=== PATIENT | male | born 1955 | race African-American/Black ===

== ENCOUNTER 2019-11-01 14:24 | Inpatient (IN) ==
[2019-11-01] MEDS ORDERED: GLUCAGON 1 MG VIAL IM PRN (16:24)
[2019-11-01] MEDS ORDERED: DEXTROSE 10% 250 ML BAG IV PRN (16:24)
[2019-11-01] MEDS ORDERED: DEXTROSE 50% 25 GM/50 ML VIAL IV PRN (16:52)
[2019-11-01] MEDS ORDERED: SODIUM CHLORIDE 0.9% 1,000 ML IV ONE (16:57)
[2019-11-01 17:13] LABS: Basophils % 0.2 % (0.0-0.8); Eosinophils % 0.1 % (0.00-10.9); Hematocrit 33.4 VOL% (42.0-52.0); Hemoglobin 10.5 GM/DL (14.0-18.0); Immature Granulocytes % 3.1 %; Immature Granulocytes Absolute 0.61 #; Lymphocytes # 1.4 10*3/uL (1.4-4.0); Lymphocytes % 6.8 % (21.2-54.2); Mean Corpuscular HGB Conc 31.4 GM/DL (32-36); Mean Corpuscular Volume 89.8 FL (87-102); Mean Platelet Volume 10.5 FL (9.6-12.0); Monocytes % 9.8 % (1.7-12.7); Platelet Count 210 T/CUMM (130-400); Red Blood Count 3.72 MC/CUMM (3.8-5.5); Red Cell Distribution Width 13.6 % (9.3-17.3)
[2019-11-01 17:33] LABS: Albumin 2.1 G/DL (3.4-5.0); Bilirubin,Total 1.2 MG/DL (0.2-1.0); Calcium 8.2 MG/DL (8.5-10.1); Osmolality,Calculated 286.8 MOS/KG (273-304)
[2019-11-01 17:34] LABS: Lymphocytes 15 % (20-55); Segmented Neutrophils 76 % (50-85); Total Cells Counted 100
[2019-11-01 17:35] LABS: Hypochromasia Slight; Platelet Estimate Normal
[2019-11-01] MEDS: SODIUM CHLORIDE 0.9% 1,000 ML IV SCH (19:13)
[2019-11-01] MEDS: PIPERACILLIN/TAZOBACTAM 3,375 MG in SODIUM CHLORIDE 0.9% 100 ML IV SCH (19:16)
[2019-11-01 20:23] LABS: Apearance,Urine CLOUDY (Clear); Bilirubin,Urine Negative (Negative); Blood, Urine Large mg/dL (Negative); Glucose,Urine (UA) 50 mg/dL (Negative); Ketones,Urine Negative (Negative); Mucus,Urine Occasional /LPF (Occasional); Nitrite,Urine Negative (Negative); Protein,Urine 100 MG/DL; RBC,Urine 112 /HPF (0-4); Squamous Epithelial Cell,Urine Few /HPF (0-10); Urine Color Amber (Yellow); Urine Specific Gravity 1.015 (1.001-1.035); WBC,Urine 26 /HPF (0-6)
[2019-11-01] MEDS: INSULIN REGULAR 100 UNIT/ML SUBCUT SCH (21:43)
[2019-11-02] MEDS: PIPERACILLIN/TAZOBACTAM 3,375 MG in SODIUM CHLORIDE 0.9% 100 ML IV SCH ×2 (05:05→17:24)
[2019-11-02 08:52] LABS: Basophils # 0.1 10*3/uL (0.0-0.2); Basophils % 0.2 % (0.0-0.8); Eosinophils # 0.1 10*3/uL (0.0-0.87); Eosinophils % 0.2 % (0.00-10.9); Hematocrit 31.7 VOL% (42.0-52.0); Hemoglobin 10.2 GM/DL (14.0-18.0); Immature Granulocytes % 3.4 %; Lymphocytes # 1.4 10*3/uL (1.4-4.0); Mean Corpuscular HGB Conc 32.2 GM/DL (32-36); Mean Corpuscular Volume 88.8 FL (87-102); Mean Platelet Volume 10.3 FL (9.6-12.0); Monocytes % 8.8 % (1.7-12.7); Neutrophils % 81.4 % (38.7-73.9); Platelet Count 217 T/CUMM (130-400); Red Blood Count 3.57 MC/CUMM (3.8-5.5); Red Cell Distribution Width 13.6 % (9.3-17.3); White Blood Count 23.7 T/CUMM (4-12)
[2019-11-02] MEDS ORDERED: sitaGLIPtin 100 MG TABLET PO SCH (09:00)
[2019-11-02] MEDS ORDERED: VANCOMYCIN INJ 500 MG in SODIUM CHLORIDE 0.9% 250 ML IV PRN (09:00)
[2019-11-02 09:06] LABS: Osmolality,Calculated 278.8 MOS/KG (273-304)
[2019-11-02 10:04] LABS: Band Neutrophils 5 % (0-10); Hypochromasia 1+; Lymphocytes 8 % (20-55); Metamyelocytes 2 %; Microcytosis Slight; Segmented Neutrophils 76 % (50-85); Total Cells Counted 100
[2019-11-02 10:05] LABS: Ovalocytes Few; Platelet Estimate Normal; Polychromasia Slight; Spherocytes Slight
[2019-11-02 10:13] LABS: Atypical Lymphocytes Few; Reactive Lymphocytes Few
[2019-11-02] MEDS: INSULIN REGULAR 100 UNIT/ML SUBCUT SCH ×4 (10:36→21:02)
[2019-11-02] MEDS ORDERED: VANCOMYCIN INJ 1,000 MG in SODIUM CHLORIDE 0.9% 250 ML IV ONE ×2 (13:00)
[2019-11-02] MEDS: SODIUM CHLORIDE 0.9% 1,000 ML IV SCH ×2 (17:46→23:40)
[2019-11-02] MEDS ORDERED: ACETAMINOPHEN 500 MG TABLET PO PRN (18:57)
[2019-11-03] MEDS: PIPERACILLIN/TAZOBACTAM 3,375 MG in SODIUM CHLORIDE 0.9% 100 ML IV SCH ×2 (06:19→18:21)
[2019-11-03 06:22] LABS: Basophils # 0.1 10*3/uL (0.0-0.2); Basophils % 0.2 % (0.0-0.8); Eosinophils # 0.1 10*3/uL (0.0-0.87); Eosinophils % 0.2 % (0.00-10.9); Hematocrit 30.2 VOL% (42.0-52.0); Hemoglobin 9.7 GM/DL (14.0-18.0); Immature Granulocytes % 4.5 %; Immature Granulocytes Absolute 1.09 #; Lymphocytes # 1.6 10*3/uL (1.4-4.0); Lymphocytes % 6.5 % (21.2-54.2); Mean Corpuscular HGB Conc 32.1 GM/DL (32-36); Mean Corpuscular Volume 88.8 FL (87-102); Mean Platelet Volume 10.3 FL (9.6-12.0); Neutrophils % 78.6 % (38.7-73.9); Platelet Count 240 T/CUMM (130-400); Red Cell Distribution Width 13.9 % (9.3-17.3); White Blood Count 24.3 T/CUMM (4-12)
[2019-11-03 06:33] LABS: Calcium 7.9 MG/DL (8.5-10.1); Osmolality,Calculated 290.1 MOS/KG (273-304)
[2019-11-03] MEDS: INSULIN REGULAR 100 UNIT/ML SUBCUT SCH ×4 (08:25→21:15)
[2019-11-03] MEDS ORDERED: LIDOCAINE 2% TOP JELLY 20 ML VIAL INTRAURETH ONE (08:41)
[2019-11-03] MEDS ORDERED: BUPIVACAINE MPF 0.25% 30 ML VIAL ONE (08:51)
[2019-11-03] MEDS ORDERED: LIDOCAINE 1% 20 ML VIAL ONE (08:52)
[2019-11-03] MEDS ORDERED: DEXMEDETOMIDINE 200 MCG/2 ML VIAL ONE (09:17)
[2019-11-03] MEDS: SODIUM CHLORIDE 0.9% 1,000 ML IV SCH (09:22)
[2019-11-03] MEDS: sitaGLIPtin 25 MG TABLET PO SCH (09:22)
[2019-11-03 10:00] LABS: Band Neutrophils 3 % (0-10); Eosinophils 1 % (0-10); Lymphocytes 6 % (20-55); Metamyelocytes 1 %; Segmented Neutrophils 83 % (50-85); Total Cells Counted 100
[2019-11-03 10:11] LABS: Hypochromasia 2+
[2019-11-03 10:12] LABS: Anisocytosis 1+; Macrocytosis Slight; Microcytosis Slight; Platelet Estimate Normal; Polychromasia Slight
[2019-11-03] MEDS ORDERED: MIDAZOLAM 2 MG/2 ML VIAL ONE (10:37)
[2019-11-03] MEDS ORDERED: DESFLURANE 1 UNIT/15 MINUTE INH ONE (10:37)
[2019-11-03] MEDS ORDERED: LIDOCAINE 2% 5 ML VIAL ONE (10:37)
[2019-11-03] MEDS ORDERED: fentaNYL 100 MCG/2 ML VIAL ONE (10:37)
[2019-11-03] MEDS ORDERED: ONDANSETRON 4 MG/2 ML VIAL ONE (10:38)
[2019-11-03] MEDS ORDERED: PHENYLEPHRINE 1 MG/10 ML SYRINGE IV ONE (10:38)
[2019-11-03] MEDS ORDERED: ETOMIDATE 40 MG/20 ML VIAL IV ONE (10:38)
[2019-11-03] MEDS ORDERED: SUCCINYLCHOLINE 200 MG/10 ML VIAL ONE (10:39)
[2019-11-03 10:52] LABS: Apearance,Urine Slightly Hazy (Clear); Bilirubin,Urine Negative (Negative); Blood, Urine Small mg/dL (Negative); Glucose,Urine (UA) 50 mg/dL (Negative); Ketones,Urine Negative (Negative); Nitrite,Urine Negative (Negative); Protein,Urine 30 MG/DL; RBC,Urine 20 /HPF (0-4); Urine Color Amber (Yellow); Urine Specific Gravity 1.015 (1.001-1.035); WBC,Urine 1 /HPF (0-6)
[2019-11-03] MEDS ORDERED: VANCOMYCIN INJ 1,750 MG in SODIUM CHLORIDE 0.9% 500 ML IV PRN (12:24)
[2019-11-03] MEDS ORDERED: VANCOMYCIN INJ 1,750 MG in SODIUM CHLORIDE 0.9% 500 ML IV ONE (14:00)
[2019-11-03] MEDS: oxyCODONE/ACETAMINOPHEN 5-325 MG TABLET PO PRN (18:21)
[2019-11-04] MEDS: SODIUM CHLORIDE 0.9% 1,000 ML IV SCH ×2 (03:06→18:09)
[2019-11-04] MEDS: PIPERACILLIN/TAZOBACTAM 3,375 MG in SODIUM CHLORIDE 0.9% 100 ML IV SCH ×2 (05:38→18:10)
[2019-11-04 06:12] LABS: Basophils # 0.1 10*3/uL (0.0-0.2); Basophils % 0.2 % (0.0-0.8); Eosinophils # 0.1 10*3/uL (0.0-0.87); Eosinophils % 0.6 % (0.00-10.9); Hematocrit 28.4 VOL% (42.0-52.0); Hemoglobin 9.2 GM/DL (14.0-18.0); Immature Granulocytes % 4.1 %; Immature Granulocytes Absolute 0.95 #; Lymphocytes # 1.5 10*3/uL (1.4-4.0); Lymphocytes % 6.5 % (21.2-54.2); Mean Corpuscular HGB Conc 32.4 GM/DL (32-36); Mean Corpuscular Volume 87.1 FL (87-102); Mean Platelet Volume 10.2 FL (9.6-12.0); Monocytes % 9.7 % (1.7-12.7); Neutrophils % 78.9 % (38.7-73.9); Platelet Count 261 T/CUMM (130-400); Red Blood Count 3.26 MC/CUMM (3.8-5.5); Red Cell Distribution Width 14.2 % (9.3-17.3)
[2019-11-04 06:22] LABS: Calcium 7.8 MG/DL (8.5-10.1); Osmolality,Calculated 286.4 MOS/KG (273-304)
[2019-11-04 06:48] LABS: Band Neutrophils 3 % (0-10); Lymphocytes 9 % (20-55); Platelet Estimate Normal; Segmented Neutrophils 76 % (50-85); Total Cells Counted 100
[2019-11-04 06:49] LABS: Anisocytosis 1+; Macrocytosis Slight; Polychromasia Slight
[2019-11-04] MEDS: INSULIN REGULAR 100 UNIT/ML SUBCUT SCH ×4 (08:47→21:53)
[2019-11-04] MEDS: oxyCODONE/ACETAMINOPHEN 5-325 MG TABLET PO PRN ×2 (08:47→14:42)
[2019-11-04] MEDS: sitaGLIPtin 25 MG TABLET PO SCH (08:48)
[2019-11-05] MEDS: SODIUM CHLORIDE 0.9% 1,000 ML IV SCH ×2 (01:25→17:17)
[2019-11-05] MEDS: oxyCODONE/ACETAMINOPHEN 5-325 MG TABLET PO PRN ×2 (04:00→18:32)
[2019-11-05] MEDS: PIPERACILLIN/TAZOBACTAM 3,375 MG in SODIUM CHLORIDE 0.9% 100 ML IV SCH ×2 (05:55→17:18)
[2019-11-05] MEDS: sitaGLIPtin 25 MG TABLET PO SCH (10:14)
[2019-11-05] MEDS: INSULIN REGULAR 100 UNIT/ML SUBCUT SCH ×4 (10:14→21:07)
[2019-11-05] MEDS ORDERED: VANCOMYCIN INJ 1,750 MG in SODIUM CHLORIDE 0.9% 500 ML IV ONE (11:00)
[2019-11-06] MEDS: SODIUM CHLORIDE 0.9% 1,000 ML IV SCH (03:33)
[2019-11-06] MEDS: PIPERACILLIN/TAZOBACTAM 3,375 MG in SODIUM CHLORIDE 0.9% 100 ML IV SCH ×2 (05:57→17:37)
[2019-11-06 08:04] LABS: Basophils % 0.2 % (0.0-0.8); Eosinophils # 0.2 10*3/uL (0.0-0.87); Eosinophils % 0.9 % (0.00-10.9); Hematocrit 28.8 VOL% (42.0-52.0); Hemoglobin 9.4 GM/DL (14.0-18.0); Immature Granulocytes % 1.8 %; Immature Granulocytes Absolute 0.35 #; Lymphocytes # 1.3 10*3/uL (1.4-4.0); Lymphocytes % 6.6 % (21.2-54.2); Mean Corpuscular HGB Conc 32.6 GM/DL (32-36); Mean Corpuscular Volume 87.8 FL (87-102); Mean Platelet Volume 10.1 FL (9.6-12.0); Monocytes % 9.8 % (1.7-12.7); Neutrophils % 80.7 % (38.7-73.9); Platelet Count 287 T/CUMM (130-400); Red Blood Count 3.28 MC/CUMM (3.8-5.5); Red Cell Distribution Width 14.4 % (9.3-17.3); White Blood Count 19.3 T/CUMM (4-12)
[2019-11-06 08:20] LABS: Calcium 7.8 MG/DL (8.5-10.1); Osmolality,Calculated 279.7 MOS/KG (273-304)
[2019-11-06] MEDS: sitaGLIPtin 25 MG TABLET PO SCH (09:57)
[2019-11-06] MEDS: INSULIN REGULAR 100 UNIT/ML SUBCUT SCH ×4 (09:57→20:36)
[2019-11-06] MEDS: oxyCODONE/ACETAMINOPHEN 5-325 MG TABLET PO PRN (15:27)
[2019-11-07] MEDS: SODIUM CHLORIDE 0.9% 1,000 ML IV SCH (01:26)
[2019-11-07] MEDS: PIPERACILLIN/TAZOBACTAM 3,375 MG in SODIUM CHLORIDE 0.9% 100 ML IV SCH (05:21)
[2019-11-07 07:17] LABS: Basophils % 0.2 % (0.0-0.8); Eosinophils # 0.2 10*3/uL (0.0-0.87); Eosinophils % 1.1 % (0.00-10.9); Hematocrit 27.9 VOL% (42.0-52.0); Immature Granulocytes % 1.3 %; Immature Granulocytes Absolute 0.22 #; Lymphocytes # 1.1 10*3/uL (1.4-4.0); Lymphocytes % 6.3 % (21.2-54.2); Mean Corpuscular HGB Conc 32.3 GM/DL (32-36); Mean Corpuscular Volume 87.5 FL (87-102); Mean Platelet Volume 9.7 FL (9.6-12.0); Monocytes % 10.1 % (1.7-12.7); Platelet Count 310 T/CUMM (130-400); Red Blood Count 3.19 MC/CUMM (3.8-5.5); Red Cell Distribution Width 14.4 % (9.3-17.3); White Blood Count 17.6 T/CUMM (4-12)
[2019-11-07 07:29] LABS: Calcium 7.6 MG/DL (8.5-10.1); Osmolality,Calculated 278.8 MOS/KG (273-304)
[2019-11-07] MEDS: INSULIN REGULAR 100 UNIT/ML SUBCUT SCH ×2 (08:46→12:30)
[2019-11-07] MEDS ORDERED: TAMSULOSIN 0.4 MG CAPSULE PO SCH (09:00)
[2019-11-07] MEDS ORDERED: LINEZOLID INJ 600 MG in PREMIX 1 EACH IV SCH (09:00)
[2019-11-07] MEDS: sitaGLIPtin 25 MG TABLET PO SCH (09:52)
[2019-11-07] MEDS ORDERED: LOSARTAN/HCTZ 50-12.5 MG TABLET PO SCH (10:00)
[2019-11-07] MEDS: oxyCODONE/ACETAMINOPHEN 5-325 MG TABLET PO PRN (11:04)
[2019-11-07 11:59] VITALS: BP 153/79
== END 2019-11-07 14:55 | DRG 264 ==
LOC: N.3E → SUATTDRO 15:18 → OBSVTOIN 15:18
PROVIDERS: ADMIT Surgery; ATTEND Surgery

== ENCOUNTER 2020-05-01 11:37 | Inpatient (IN) ==
[2020-05-01 12:26] LABS: Basophils % 0.2 % (0.0-0.8); Eosinophils % 0.4 % (0.00-10.9); Hematocrit 35.7 VOL% (42.0-52.0); Hemoglobin 11.5 GM/DL (14.0-18.0); Immature Granulocytes % 0.7 %; Immature Granulocytes Absolute 0.03 #; Lymphocytes # 0.8 10*3/uL (1.4-4.0); Lymphocytes % 17.3 % (21.2-54.2); Mean Corpuscular HGB Conc 32.2 GM/DL (32-36); Mean Corpuscular Volume 89.3 FL (87-102); Mean Platelet Volume 9.8 FL (9.6-12.0); Monocytes % 6.2 % (1.7-12.7); Neutrophils % 75.2 % (38.7-73.9); Platelet Count 191 T/CUMM (130-400); Red Cell Distribution Width 14.3 % (9.3-17.3); White Blood Count 4.5 T/CUMM (4-12)
[2020-05-01] MEDS ORDERED: NALOXONE 0.4 MG/ML VIAL IV ONE (12:29)
[2020-05-01 12:37] LABS: Alanine Aminotransferase 58 U/L (16-61); Albumin 2.8 G/DL (3.4-5.0); Alkaline Phosphatase 108 U/L (45-117); Aspartate Amino Transferase 49 U/L (0-37); Bilirubin,Total < 0.39 MG/DL (0.2-1.0); Blood Urea Nitrogen 84 MG/DL (7-18); Calcium 9.4 MG/DL (8.5-10.1); Estimated Glom Filtration Rate 19 ML/MIN; Glucose 128 MG/DL (74-106); Osmolality,Calculated 297.1 MOS/KG (273-304); Total Protein 8.1 G/DL (6.4-8.3)
[2020-05-01 13:00] LABS: Bacteria,Urine Occasional /HPF (Few); Bilirubin,Urine Negative (Negative); Blood, Urine Negative (Negative); Glucose,Urine (UA) Negative (Negative); Ketones,Urine Negative (Negative); Nitrite,Urine Negative (Negative); Protein,Urine Negative; RBC,Urine <1 /HPF (0-4); Squamous Epithelial Cell,Urine Occasional /HPF (0-10); Urine Appearance CLEAR (Clear); Urine Color Straw (Yellow); Urine Specific Gravity 1.006 (1.001-1.035); Urine Urobilinogen < 2.0 EU/DL (0.2-1.0); WBC,Urine 1 /HPF (0-6)
[2020-05-01] MEDS ORDERED: SODIUM CHLORIDE 0.9% 1,000 ML IV STA (13:30)
[2020-05-01] MEDS ORDERED: ONDANSETRON 4 MG/2 ML VIAL IV PRN (14:29)
[2020-05-01] MEDS ORDERED: ALBUTEROL 2.5 MG/3 ML NEB RESP TX PRN (14:29)
[2020-05-01] MEDS ORDERED: hydrALAZINE 20 MG/1 ML VIAL IV PRN (14:48)
[2020-05-01] MEDS ORDERED: GLUCAGON 1 MG VIAL IM PRN (14:55)
[2020-05-01] MEDS ORDERED: LIDOCAINE 2% TOP JELLY 20 ML VIAL INTRAURETH ONE (15:18)
[2020-05-01 15:25] LABS: ABG HCO3 34.8 MMOL/L (20-26); ABG Oxygen Saturation 98.6 % (95-100); ABG PCO2 52.9 MM HG (35-48); ABG PH 7.451 (7.35-7.45); ABG TCO2 33.4 MMOL/L (23-27); Pt O2 Delivery Device Room Air
[2020-05-01] MEDS: cefTRIAXone 1,000 MG in SYRINGE 1 EACH IV SCH (16:30)
[2020-05-01 17:14] LABS: PT Patient Result 11.1 SECS (9.8-11.9)
[2020-05-01] MEDS: SODIUM CHLORIDE 0.9% 1,000 ML IV SCH (17:20)
[2020-05-01] MEDS: HEPARIN 5,000 UNIT/1 ML VIAL SUBCUT SCH ×2 (17:39→23:57)
[2020-05-01] MEDS: INSULIN REGULAR 100 UNIT/ML SUBCUT SCH ×2 (17:42→21:44)
[2020-05-01] MEDS: DEXTROSE 50% 25 GM/50 ML VIAL IV PRN (17:49)
[2020-05-01] MEDS ORDERED: COSYNTROPIN 0.25 MG VIAL IV ONE (19:00)
[2020-05-01] MEDS: SODIUM BICARBONATE 650 MG TABLET PO SCH (22:05)
[2020-05-02 04:48] LABS: Basophils % 0.2 % (0.0-0.8); Eosinophils % 0.2 % (0.00-10.9); Hematocrit 32.7 VOL% (42.0-52.0); Hemoglobin 10.4 GM/DL (14.0-18.0); Immature Granulocytes % 0.3 %; Immature Granulocytes Absolute 0.02 #; Lymphocytes # 0.6 10*3/uL (1.4-4.0); Lymphocytes % 9.7 % (21.2-54.2); Mean Corpuscular HGB Conc 31.8 GM/DL (32-36); Mean Corpuscular Volume 89.8 FL (87-102); Mean Platelet Volume 10.5 FL (9.6-12.0); Monocytes % 8.3 % (1.7-12.7); NRBC # 0.05 10*3/uL; Neutrophils % 81.3 % (38.7-73.9); Platelet Count 192 T/CUMM (130-400); Red Blood Count 3.64 MC/CUMM (3.8-5.5); Red Cell Distribution Width 14.5 % (9.3-17.3); White Blood Count 6.5 T/CUMM (4-12)
[2020-05-02 05:11] LABS: Albumin 2.4 G/DL (3.4-5.0); Bilirubin,Total 1.1 MG/DL (0.2-1.0); Calcium 8.7 MG/DL (8.5-10.1); Osmolality,Calculated 300.5 MOS/KG (273-304); Total Protein 7.1 G/DL (6.4-8.3)
[2020-05-02 05:16] LABS: Free T4 (Free Thyroxine) 0.93 NG/DL (0.76-1.46)
[2020-05-02] MEDS: SODIUM CHLORIDE 0.9% 1,000 ML IV SCH ×3 (05:22→17:44)
[2020-05-02] MEDS: DEXTROSE 50% 25 GM/50 ML VIAL IV PRN (05:28)
[2020-05-02] MEDS: HEPARIN 5,000 UNIT/1 ML VIAL SUBCUT SCH ×3 (06:18→23:11)
[2020-05-02] MEDS: INSULIN REGULAR 100 UNIT/ML SUBCUT SCH ×4 (07:10→21:05)
[2020-05-02] MEDS: TAMSULOSIN 0.4 MG CAPSULE PO SCH (08:30)
[2020-05-02] MEDS: SODIUM BICARBONATE 650 MG TABLET PO SCH ×2 (08:30→21:26)
[2020-05-02] MEDS ORDERED: SODIUM CHLORIDE 0.9% 500 ML IV ONE (09:32)
[2020-05-02] MEDS: LEVOTHYROXINE 75 MCG TABLET PO SCH (12:09)
[2020-05-02 16:51] LABS: Calcium 8.6 MG/DL (8.5-10.1); Osmolality,Calculated 299.5 MOS/KG (273-304)
[2020-05-02] MEDS: cefTRIAXone 1,000 MG in SYRINGE 1 EACH IV SCH (17:40)
[2020-05-03] MEDS: SODIUM CHLORIDE 0.9% 1,000 ML IV SCH ×2 (05:00→23:03)
[2020-05-03 05:33] LABS: Basophils % 0.1 % (0.0-0.8); Eosinophils % 0.3 % (0.00-10.9); Hematocrit 31.3 VOL% (42.0-52.0); Hemoglobin 9.7 GM/DL (14.0-18.0); Immature Granulocytes % 0.3 %; Immature Granulocytes Absolute 0.02 #; Lymphocytes # 0.9 10*3/uL (1.4-4.0); Lymphocytes % 12.7 % (21.2-54.2); Mean Corpuscular Volume 92.9 FL (87-102); Monocytes % 9.6 % (1.7-12.7); Platelet Count 147 T/CUMM (130-400); Red Blood Count 3.37 MC/CUMM (3.8-5.5); Red Cell Distribution Width 14.8 % (9.3-17.3); White Blood Count 7.3 T/CUMM (4-12)
[2020-05-03 05:51] LABS: Calcium 8.6 MG/DL (8.5-10.1); Osmolality,Calculated 300.3 MOS/KG (273-304)
[2020-05-03 05:51] LABS: Hypochromasia 1+; Microcytosis 1+
[2020-05-03 05:52] LABS: Platelet Estimate Adequate
[2020-05-03] MEDS: INSULIN REGULAR 100 UNIT/ML SUBCUT SCH ×4 (08:00→23:02)
[2020-05-03] MEDS: TAMSULOSIN 0.4 MG CAPSULE PO SCH (08:50)
[2020-05-03] MEDS: HEPARIN 5,000 UNIT/1 ML VIAL SUBCUT SCH ×3 (08:50→23:05)
[2020-05-03] MEDS: LEVOTHYROXINE 75 MCG TABLET PO SCH (08:50)
[2020-05-03] MEDS: SODIUM BICARBONATE 650 MG TABLET PO SCH (08:50)
[2020-05-04] MEDS: INSULIN REGULAR 100 UNIT/ML SUBCUT SCH ×4 (02:25→17:51)
[2020-05-04 06:47] LABS: Basophils % 0.2 % (0.0-0.8); Eosinophils % 0.5 % (0.00-10.9); Hematocrit 33.6 VOL% (42.0-52.0); Hemoglobin 10.4 GM/DL (14.0-18.0); Immature Granulocytes % 0.3 %; Immature Granulocytes Absolute 0.02 #; Lymphocytes # 0.7 10*3/uL (1.4-4.0); Lymphocytes % 12.1 % (21.2-54.2); Mean Corpuscular Volume 92.1 FL (87-102); Mean Platelet Volume 10.1 FL (9.6-12.0); Monocytes % 10.9 % (1.7-12.7); Platelet Count 132 T/CUMM (130-400); Red Blood Count 3.65 MC/CUMM (3.8-5.5); Red Cell Distribution Width 14.5 % (9.3-17.3); White Blood Count 5.9 T/CUMM (4-12)
[2020-05-04 07:09] LABS: Calcium 9.3 MG/DL (8.5-10.1); Osmolality,Calculated 301.1 MOS/KG (273-304)
[2020-05-04] MEDS: TAMSULOSIN 0.4 MG CAPSULE PO SCH (08:37)
[2020-05-04] MEDS: HEPARIN 5,000 UNIT/1 ML VIAL SUBCUT SCH ×3 (08:37→23:07)
[2020-05-04] MEDS: LEVOTHYROXINE 75 MCG TABLET PO SCH (08:37)
[2020-05-04] MEDS: SODIUM CHLORIDE 0.9% 1,000 ML IV SCH ×3 (17:51→23:00)
[2020-05-04] MEDS ORDERED: traZODone 50 MG TABLET PO SCH (21:00)
[2020-05-05] MEDS: INSULIN REGULAR 100 UNIT/ML SUBCUT SCH ×4 (00:56→17:49)
[2020-05-05] MEDS: HEPARIN 5,000 UNIT/1 ML VIAL SUBCUT SCH ×3 (06:19→22:50)
[2020-05-05] MEDS: LEVOTHYROXINE 75 MCG TABLET PO SCH (06:19)
[2020-05-05] MEDS: TAMSULOSIN 0.4 MG CAPSULE PO SCH (08:34)
[2020-05-05] MEDS: SODIUM CHLORIDE 0.9% 1,000 ML IV SCH ×2 (09:19→23:16)
[2020-05-05 14:01] LABS: Basophils % 0.1 % (0.0-0.8); Eosinophils % 0.2 % (0.00-10.9); Hemoglobin 9.4 GM/DL (14.0-18.0); Immature Granulocytes % 0.4 %; Immature Granulocytes Absolute 0.03 #; Lymphocytes # 0.8 10*3/uL (1.4-4.0); Lymphocytes % 9.3 % (21.2-54.2); Mean Corpuscular HGB Conc 30.3 GM/DL (32-36); Mean Corpuscular Volume 94.8 FL (87-102); Monocytes % 11.3 % (1.7-12.7); Neutrophils % 78.7 % (38.7-73.9); Platelet Count 101 T/CUMM (130-400); Red Blood Count 3.27 MC/CUMM (3.8-5.5); Red Cell Distribution Width 14.9 % (9.3-17.3); White Blood Count 8.6 T/CUMM (4-12)
[2020-05-05 14:15] LABS: ABG Base Excess 9.1 MMOL/L (-2.5-2.5); ABG HCO3 32.8 MMOL/L (20-26); ABG Oxygen Saturation 98.4 % (95-100); ABG PCO2 54.2 MM HG (35-48)
[2020-05-05 14:27] LABS: Calcium 8.8 MG/DL (8.5-10.1); Osmolality,Calculated 305.8 MOS/KG (273-304)
[2020-05-06] MEDS: INSULIN REGULAR 100 UNIT/ML SUBCUT SCH ×4 (00:39→17:50)
[2020-05-06] MEDS: SODIUM CHLORIDE 0.9% 1,000 ML IV SCH ×4 (01:40→22:18)
[2020-05-06] MEDS: HEPARIN 5,000 UNIT/1 ML VIAL SUBCUT SCH ×2 (06:17→17:49)
[2020-05-06] MEDS: LEVOTHYROXINE 75 MCG TABLET PO SCH (06:18)
[2020-05-06] MEDS ORDERED: ACETAMINOPHEN 500 MG TABLET PO PRN (07:46)
[2020-05-06] MEDS ORDERED: NOREPINEPHRINE 8 MG in SODIUM CHLORIDE 0.9% 242 ML IV PRN (07:53)
[2020-05-06 08:24] LABS: Troponin I 0.052 NG/ML (0.00-0.045)
[2020-05-06] MEDS ORDERED: VANCOMYCIN INJ 1,250 MG in SODIUM CHLORIDE 0.9% 250 ML IV ONE (09:00)
[2020-05-06] MEDS: MEROPENEM 500 MG in SODIUM CHLORIDE 0.9% 100 ML IV SCH ×2 (09:02→22:06)
[2020-05-06] MEDS: TAMSULOSIN 0.4 MG CAPSULE PO SCH (09:02)
[2020-05-06] MEDS: methylPREDNISolone SOD SUC 125 MG/2 ML VIAL IV SCH ×2 (09:02→17:00)
[2020-05-06 09:49] LABS: ABG Base Excess 5.8 MMOL/L (-2.5-2.5); ABG HCO3 29.7 MMOL/L (20-26); ABG Oxygen Saturation 99.1 % (95-100); ABG PH 7.301 (7.35-7.45); ABG TCO2 31.6 MMOL/L (23-27); Pt O2 Delivery Device Simple Mask
[2020-05-06 10:18] LABS: Osmolality,Calculated 312.4 MOS/KG (273-304)
[2020-05-06] MEDS: ALBUTEROL/IPRATROPIUM 3 ML NEB RESP TX SCH ×2 (13:22→19:29)
[2020-05-07] MEDS: methylPREDNISolone SOD SUC 125 MG/2 ML VIAL IV SCH ×4 (00:11→21:54)
[2020-05-07] MEDS: INSULIN REGULAR 100 UNIT/ML SUBCUT SCH ×5 (00:11→23:14)
[2020-05-07] MEDS: HEPARIN 5,000 UNIT/1 ML VIAL SUBCUT SCH ×4 (00:11→23:14)
[2020-05-07] MEDS: ALBUTEROL/IPRATROPIUM 3 ML NEB RESP TX SCH ×4 (01:18→19:16)
[2020-05-07 05:06] LABS: Basophils % 0.2 % (0.0-0.8); Hematocrit 37.1 VOL% (42.0-52.0); Hemoglobin 11.1 GM/DL (14.0-18.0); Immature Granulocytes % 0.4 %; Immature Granulocytes Absolute 0.05 #; Lymphocytes # 0.5 10*3/uL (1.4-4.0); Lymphocytes % 4.4 % (21.2-54.2); Mean Corpuscular HGB Conc 29.9 GM/DL (32-36); Mean Corpuscular Volume 97.4 FL (87-102); Mean Platelet Volume 11.2 FL (9.6-12.0); Monocytes % 2.3 % (1.7-12.7); Neutrophils % 92.7 % (38.7-73.9); Platelet Count 79 T/CUMM (130-400); Red Blood Count 3.81 MC/CUMM (3.8-5.5); White Blood Count 11.9 T/CUMM (4-12)
[2020-05-07 05:06] LABS: Alanine Aminotransferase 64 U/L (16-61); Albumin 1.9 G/DL (3.4-5.0); Alkaline Phosphatase 94 U/L (45-117); Aspartate Amino Transferase 57 U/L (0-37); Bilirubin,Total < 0.39 MG/DL (0.2-1.0); Blood Urea Nitrogen 67 MG/DL (7-18); Calcium 9.1 MG/DL (8.5-10.1); Estimated Glom Filtration Rate 29 ML/MIN; Glucose 237 MG/DL (74-106); Osmolality,Calculated 316.6 MOS/KG (273-304); Total Protein 7.2 G/DL (6.4-8.3)
[2020-05-07 05:22] LABS: Band Neutrophils 1 % (0-10); Lymphocytes 5 % (20-55); Platelet Estimate Decreased; Segmented Neutrophils 92 % (50-85); Total Cells Counted 100
[2020-05-07] MEDS: SODIUM CHLORIDE 0.9% 1,000 ML IV SCH ×3 (06:12→18:49)
[2020-05-07] MEDS: LEVOTHYROXINE 75 MCG TABLET PO SCH (06:20)
[2020-05-07] MEDS ORDERED: VANCOMYCIN INJ 1,250 MG in SODIUM CHLORIDE 0.9% 250 ML IV PRN (08:13)
[2020-05-07] MEDS: TAMSULOSIN 0.4 MG CAPSULE PO SCH (10:19)
[2020-05-07] MEDS: MEROPENEM 500 MG in SODIUM CHLORIDE 0.9% 100 ML IV SCH ×2 (10:20→21:54)
[2020-05-07] MEDS ORDERED: VANCOMYCIN INJ 1,250 MG in SODIUM CHLORIDE 0.9% 250 ML IV ONE (13:00)
[2020-05-07 17:48] LABS: Glucose,CSF 159 MG/DL (40-70)
[2020-05-07 18:57] LABS: Lymphocytes,CSF 35 %; Monocytes,CSF 51 %; Neutrophils,CSF 14 %
[2020-05-07 18:58] LABS: Appearance,CSF Clear; Red Blood Cell,CSF 187 C/CUMM; White Blood Cell,CSF 9 C/CUMM
[2020-05-08] MEDS: ALBUTEROL/IPRATROPIUM 3 ML NEB RESP TX SCH ×4 (01:19→19:27)
[2020-05-08] MEDS: SODIUM CHLORIDE 0.9% 1,000 ML IV SCH (01:48)
[2020-05-08] MEDS: INSULIN REGULAR 100 UNIT/ML SUBCUT SCH ×4 (05:28→23:47)
[2020-05-08 06:11] LABS: Basophils % 0.1 % (0.0-0.8); Hemoglobin 10.2 GM/DL (14.0-18.0); Immature Granulocytes % 0.5 %; Immature Granulocytes Absolute 0.07 #; Lymphocytes # 0.4 10*3/uL (1.4-4.0); Lymphocytes % 3.2 % (21.2-54.2); Mean Corpuscular HGB Conc 30.9 GM/DL (32-36); Mean Corpuscular Volume 92.4 FL (87-102); Mean Platelet Volume 10.9 FL (9.6-12.0); Monocytes % 2.3 % (1.7-12.7); Neutrophils % 93.9 % (38.7-73.9); Platelet Count 120 T/CUMM (130-400); Red Blood Count 3.57 MC/CUMM (3.8-5.5); Red Cell Distribution Width 14.8 % (9.3-17.3); White Blood Count 12.8 T/CUMM (4-12)
[2020-05-08] MEDS: LEVOTHYROXINE 75 MCG TABLET PO SCH (06:19)
[2020-05-08] MEDS: HEPARIN 5,000 UNIT/1 ML VIAL SUBCUT SCH ×3 (06:19→23:47)
[2020-05-08] MEDS ORDERED: hydrALAZINE 20 MG/1 ML VIAL IV ONE (06:32)
[2020-05-08 06:33] LABS: Albumin 1.9 G/DL (3.4-5.0); Bilirubin,Total 0.7 MG/DL (0.2-1.0); Calcium 9.3 MG/DL (8.5-10.1); Total Protein 7.2 G/DL (6.4-8.3)
[2020-05-08 07:42] LABS: Hypochromasia 1+; Lymphocytes 1 % (20-55); Segmented Neutrophils 96 % (50-85); Target Cells Slight; Total Cells Counted 100
[2020-05-08 07:43] LABS: Microcytosis Slight; Platelet Estimate Adequate
[2020-05-08] MEDS: MEROPENEM 500 MG in SODIUM CHLORIDE 0.9% 100 ML IV SCH ×3 (07:56→23:48)
[2020-05-08] MEDS: methylPREDNISolone SOD SUC 125 MG/2 ML VIAL IV SCH ×2 (08:40→21:24)
[2020-05-08] MEDS: TAMSULOSIN 0.4 MG CAPSULE PO SCH (08:40)
[2020-05-08] MEDS: SODIUM CHLORIDE 0.45% 1,000 ML IV SCH ×2 (08:43→21:23)
[2020-05-08] MEDS ORDERED: PHENYTOIN INJ 1,000 MG in SODIUM CHLORIDE 0.9% 100 ML IV ONE (10:02)
[2020-05-08] MEDS: amLODIPine 10 MG TABLET PO SCH (10:12)
[2020-05-08] MEDS: PHENYTOIN 100 MG/2 ML VIAL IV SCH (18:27)
[2020-05-08] MEDS ORDERED: VANCOMYCIN INJ 1,250 MG in SODIUM CHLORIDE 0.9% 250 ML IV ONE (21:00)
[2020-05-09] MEDS: ALBUTEROL/IPRATROPIUM 3 ML NEB RESP TX SCH ×4 (00:06→20:58)
[2020-05-09] MEDS: PHENYTOIN 100 MG/2 ML VIAL IV SCH (02:33)
[2020-05-09 04:52] LABS: Basophils % 0.1 % (0.0-0.8); Hematocrit 34.5 VOL% (42.0-52.0); Hemoglobin 10.7 GM/DL (14.0-18.0); Immature Granulocytes % 0.4 %; Immature Granulocytes Absolute 0.04 #; Lymphocytes # 0.8 10*3/uL (1.4-4.0); Mean Corpuscular Volume 91.8 FL (87-102); Mean Platelet Volume 10.5 FL (9.6-12.0); Monocytes % 6.4 % (1.7-12.7); Neutrophils % 85.1 % (38.7-73.9); Platelet Count 153 T/CUMM (130-400); Red Blood Count 3.76 MC/CUMM (3.8-5.5); Red Cell Distribution Width 14.8 % (9.3-17.3); White Blood Count 9.4 T/CUMM (4-12)
[2020-05-09 05:30] LABS: Calcium 8.9 MG/DL (8.5-10.1); Osmolality,Calculated 318.3 MOS/KG (273-304)
[2020-05-09] MEDS: SODIUM CHLORIDE 0.45% 1,000 ML IV SCH ×3 (05:33→20:48)
[2020-05-09] MEDS: INSULIN REGULAR 100 UNIT/ML SUBCUT SCH ×3 (06:17→18:04)
[2020-05-09] MEDS: LEVOTHYROXINE 75 MCG TABLET PO SCH (06:55)
[2020-05-09] MEDS: HEPARIN 5,000 UNIT/1 ML VIAL SUBCUT SCH ×3 (06:55→23:09)
[2020-05-09] MEDS: MEROPENEM 500 MG in SODIUM CHLORIDE 0.9% 100 ML IV SCH (08:59)
[2020-05-09] MEDS: TAMSULOSIN 0.4 MG CAPSULE PO SCH (09:10)
[2020-05-09] MEDS: amLODIPine 10 MG TABLET PO SCH (09:10)
[2020-05-09] MEDS: methylPREDNISolone SOD SUC 125 MG/2 ML VIAL IV SCH ×2 (09:11→20:58)
[2020-05-09] MEDS: cloNIDine 0.3 MG/24 HR PATCH TRANSDERM SCH (10:02)
[2020-05-10] MEDS: INSULIN REGULAR 100 UNIT/ML SUBCUT SCH ×4 (01:00→17:07)
[2020-05-10] MEDS: ALBUTEROL/IPRATROPIUM 3 ML NEB RESP TX SCH ×4 (01:20→20:10)
[2020-05-10] MEDS: SODIUM CHLORIDE 0.45% 1,000 ML IV SCH ×2 (06:59→18:02)
[2020-05-10] MEDS: HEPARIN 5,000 UNIT/1 ML VIAL SUBCUT SCH ×2 (07:03→17:07)
[2020-05-10 08:23] LABS: Calcium 8.7 MG/DL (8.5-10.1); Osmolality,Calculated 318.3 MOS/KG (273-304)
[2020-05-10] MEDS: methylPREDNISolone SOD SUC 125 MG/2 ML VIAL IV SCH ×2 (10:33→20:32)
[2020-05-10] MEDS: TAMSULOSIN 0.4 MG CAPSULE PO SCH (10:43)
[2020-05-10] MEDS: LEVOTHYROXINE 75 MCG TABLET PO SCH (10:43)
[2020-05-10] MEDS: amLODIPine 10 MG TABLET PO SCH (10:44)
[2020-05-10 13:10] LABS: VDRL Spinal Fluid Negative (Negative)
[2020-05-11] MEDS: HEPARIN 5,000 UNIT/1 ML VIAL SUBCUT SCH ×2 (00:33→10:42)
[2020-05-11] MEDS: INSULIN REGULAR 100 UNIT/ML SUBCUT SCH ×4 (00:33→18:03)
[2020-05-11] MEDS: ALBUTEROL/IPRATROPIUM 3 ML NEB RESP TX SCH ×4 (01:30→19:33)
[2020-05-11 05:54] LABS: Basophils % 0.1 % (0.0-0.8); Eosinophils % 0.4 % (0.00-10.9); Hematocrit 29.8 VOL% (42.0-52.0); Hemoglobin 9.4 GM/DL (14.0-18.0); Immature Granulocytes % 0.5 %; Immature Granulocytes Absolute 0.05 #; Lymphocytes # 1.4 10*3/uL (1.4-4.0); Lymphocytes % 14.8 % (21.2-54.2); Mean Corpuscular HGB Conc 31.5 GM/DL (32-36); Mean Corpuscular Volume 90.6 FL (87-102); Mean Platelet Volume 10.5 FL (9.6-12.0); Monocytes % 9.1 % (1.7-12.7); Neutrophils % 75.1 % (38.7-73.9); Platelet Count 181 T/CUMM (130-400); Red Blood Count 3.29 MC/CUMM (3.8-5.5); Red Cell Distribution Width 14.5 % (9.3-17.3); White Blood Count 9.6 T/CUMM (4-12)
[2020-05-11 06:21] LABS: Calcium 8.2 MG/DL (8.5-10.1)
[2020-05-11 06:28] LABS: Eosinophils 1 % (0-10); Hypochromasia Slight; Lymphocytes 13 % (20-55); Platelet Estimate Normal; Segmented Neutrophils 79 % (50-85); Total Cells Counted 100
[2020-05-11] MEDS: SODIUM CHLORIDE 0.45% 1,000 ML IV SCH ×2 (06:59→14:40)
[2020-05-11] MEDS: TAMSULOSIN 0.4 MG CAPSULE PO SCH (10:41)
[2020-05-11] MEDS: LEVOTHYROXINE 75 MCG TABLET PO SCH (10:42)
[2020-05-11] MEDS: methylPREDNISolone SOD SUC 125 MG/2 ML VIAL IV SCH ×2 (10:42→22:10)
[2020-05-11] MEDS: amLODIPine 10 MG TABLET PO SCH (10:43)
[2020-05-11] MEDS: OLANZapine 2.5 MG TABLET PO SCH (12:26)
[2020-05-11] MEDS ORDERED: OLANZapine 10 MG VIAL IM ONE (13:00)
[2020-05-11 14:46] LABS: M. Tuberculosis PCR Result Negative (Negative); M. Tuberculosis PCR Source CSF
[2020-05-12] MEDS: INSULIN REGULAR 100 UNIT/ML SUBCUT SCH ×4 (00:53→17:11)
[2020-05-12] MEDS: ALBUTEROL/IPRATROPIUM 3 ML NEB RESP TX SCH ×4 (02:03→20:00)
[2020-05-12] MEDS: SODIUM CHLORIDE 0.45% 1,000 ML IV SCH ×2 (05:42→16:24)
[2020-05-12 05:46] LABS: Basophils % 0.1 % (0.0-0.8); Eosinophils # 0.1 10*3/uL (0.0-0.87); Hematocrit 32.1 VOL% (42.0-52.0); Hemoglobin 10.2 GM/DL (14.0-18.0); Immature Granulocytes % 0.5 %; Immature Granulocytes Absolute 0.04 #; Lymphocytes # 1.7 10*3/uL (1.4-4.0); Lymphocytes % 19.3 % (21.2-54.2); Mean Corpuscular HGB Conc 31.8 GM/DL (32-36); Mean Corpuscular Volume 89.9 FL (87-102); Mean Platelet Volume 10.7 FL (9.6-12.0); Monocytes % 7.1 % (1.7-12.7); Platelet Count 238 T/CUMM (130-400); Red Blood Count 3.57 MC/CUMM (3.8-5.5); White Blood Count 8.6 T/CUMM (4-12)
[2020-05-12 06:04] LABS: Calcium 8.4 MG/DL (8.5-10.1); Osmolality,Calculated 289.5 MOS/KG (273-304)
[2020-05-12 06:13] LABS: Hypochromasia 1+; Microcytosis 1+; Platelet Estimate Adequate
[2020-05-12] MEDS: LEVOTHYROXINE 75 MCG TABLET PO SCH (09:39)
[2020-05-12] MEDS: TAMSULOSIN 0.4 MG CAPSULE PO SCH (09:39)
[2020-05-12] MEDS: amLODIPine 10 MG TABLET PO SCH (09:39)
[2020-05-12] MEDS: OLANZapine 2.5 MG TABLET PO SCH (09:41)
[2020-05-12] MEDS: methylPREDNISolone SOD SUC 125 MG/2 ML VIAL IV SCH ×2 (09:41→21:28)
[2020-05-12] MEDS: POLYETHYLENE GLYCOL POWDER 17 GM PACK PO SCH ×2 (10:46→21:28)
[2020-05-13] MEDS: ALBUTEROL/IPRATROPIUM 3 ML NEB RESP TX SCH ×4 (00:38→21:47)
[2020-05-13 03:39] LABS: Eosinophils % 0.8 % (0.00-10.9); Hematocrit 28.1 VOL% (42.0-52.0); Immature Granulocytes % 0.4 %; Immature Granulocytes Absolute 0.02 #; Lymphocytes # 0.6 10*3/uL (1.4-4.0); Mean Corpuscular Volume 89.8 FL (87-102); Mean Platelet Volume 10.2 FL (9.6-12.0); Monocytes % 6.6 % (1.7-12.7); Neutrophils % 81.2 % (38.7-73.9); Platelet Count 231 T/CUMM (130-400); Red Blood Count 3.13 MC/CUMM (3.8-5.5); Red Cell Distribution Width 13.9 % (9.3-17.3); White Blood Count 5.2 T/CUMM (4-12)
[2020-05-13] MEDS: INSULIN REGULAR 100 UNIT/ML SUBCUT SCH ×4 (03:57→18:04)
[2020-05-13] MEDS: SODIUM CHLORIDE 0.45% 1,000 ML IV SCH ×2 (03:58→05:29)
[2020-05-13 04:04] LABS: Calcium 7.9 MG/DL (8.5-10.1); Osmolality,Calculated 285.7 MOS/KG (273-304)
[2020-05-13] MEDS: amLODIPine 10 MG TABLET PO SCH (09:07)
[2020-05-13] MEDS: levETIRAcetam 500 MG TABLET PO SCH ×2 (09:07→18:04)
[2020-05-13] MEDS: predniSONE 20 MG TABLET PO SCH (09:07)
[2020-05-13] MEDS: TAMSULOSIN 0.4 MG CAPSULE PO SCH (09:07)
[2020-05-13] MEDS: POLYETHYLENE GLYCOL POWDER 17 GM PACK PO SCH (09:07)
[2020-05-13] MEDS: OLANZapine 2.5 MG TABLET PO SCH (09:08)
[2020-05-13] MEDS: LEVOTHYROXINE 75 MCG TABLET PO SCH (09:08)
[2020-05-13] MEDS ORDERED: LORazepam 2 MG/1 ML VIAL IV ONE ×2 (11:40→23:51)
[2020-05-13] MEDS ORDERED: TUBERCULIN SKIN TEST 0.1 ML SYRINGE INTRADERM ONE (12:00)
[2020-05-13 12:36] LABS: West Nile Virus Ab, IgG, CSF Negative (Negative); West Nile Virus Ab, IgM, CSF Negative (Negative)
[2020-05-13] MEDS ORDERED: LORazepam 2 MG/1 ML VIAL IM ONE (12:40)
[2020-05-14] MEDS: levETIRAcetam 500 MG TABLET PO SCH ×4 (00:38→20:58)
[2020-05-14] MEDS: POLYETHYLENE GLYCOL POWDER 17 GM PACK PO SCH ×3 (00:38→20:58)
[2020-05-14] MEDS: ALBUTEROL/IPRATROPIUM 3 ML NEB RESP TX SCH ×4 (01:08→19:16)
[2020-05-14] MEDS: INSULIN REGULAR 100 UNIT/ML SUBCUT SCH ×4 (01:42→18:18)
[2020-05-14 07:08] LABS: Eosinophils # 0.2 10*3/uL (0.0-0.87); Hematocrit 28.5 VOL% (42.0-52.0); Immature Granulocytes % 0.6 %; Immature Granulocytes Absolute 0.03 #; Lymphocytes # 1.1 10*3/uL (1.4-4.0); Lymphocytes % 22.1 % (21.2-54.2); Mean Corpuscular HGB Conc 31.6 GM/DL (32-36); Mean Corpuscular Volume 90.2 FL (87-102); Mean Platelet Volume 9.9 FL (9.6-12.0); Monocytes % 13.9 % (1.7-12.7); Neutrophils % 60.4 % (38.7-73.9); Platelet Count 254 T/CUMM (130-400); Red Blood Count 3.16 MC/CUMM (3.8-5.5); Red Cell Distribution Width 13.8 % (9.3-17.3)
[2020-05-14 07:29] LABS: Osmolality,Calculated 284.5 MOS/KG (273-304)
[2020-05-14] MEDS: SODIUM CHLORIDE 0.45% 1,000 ML IV SCH (09:30)
[2020-05-14] MEDS: predniSONE 20 MG TABLET PO SCH (10:50)
[2020-05-14] MEDS: OLANZapine 2.5 MG TABLET PO SCH (10:50)
[2020-05-14] MEDS: LEVOTHYROXINE 75 MCG TABLET PO SCH (10:50)
[2020-05-14] MEDS: amLODIPine 10 MG TABLET PO SCH (10:51)
[2020-05-14] MEDS: TAMSULOSIN 0.4 MG CAPSULE PO SCH (10:51)
[2020-05-14] MEDS ORDERED: ZIPRASIDONE 20 MG/1 ML VIAL IM PRN (16:20)
[2020-05-15] MEDS: ALBUTEROL/IPRATROPIUM 3 ML NEB RESP TX SCH ×4 (00:05→20:10)
[2020-05-15] MEDS: INSULIN REGULAR 100 UNIT/ML SUBCUT SCH ×4 (00:38→17:19)
[2020-05-15 05:17] LABS: Basophils % 0.2 % (0.0-0.8); Eosinophils % 0.5 % (0.00-10.9); Hematocrit 30.5 VOL% (42.0-52.0); Immature Granulocytes % 0.5 %; Immature Granulocytes Absolute 0.03 #; Lymphocytes # 0.7 10*3/uL (1.4-4.0); Lymphocytes % 10.6 % (21.2-54.2); Mean Corpuscular HGB Conc 32.8 GM/DL (32-36); Mean Corpuscular Volume 88.7 FL (87-102); Mean Platelet Volume 10.5 FL (9.6-12.0); Monocytes % 10.3 % (1.7-12.7); Neutrophils % 77.9 % (38.7-73.9); Platelet Count 266 T/CUMM (130-400); Red Blood Count 3.44 MC/CUMM (3.8-5.5); Red Cell Distribution Width 13.7 % (9.3-17.3); White Blood Count 6.1 T/CUMM (4-12)
[2020-05-15 05:49] LABS: Calcium 8.4 MG/DL (8.5-10.1); Osmolality,Calculated 283.5 MOS/KG (273-304)
[2020-05-15] MEDS ORDERED: TUBERCULIN SKIN TEST 0.1 ML SYRINGE INTRADERM ONE (07:22)
[2020-05-15] MEDS: POLYETHYLENE GLYCOL POWDER 17 GM PACK PO SCH ×2 (09:26→21:25)
[2020-05-15] MEDS: OLANZapine 2.5 MG TABLET PO SCH (09:26)
[2020-05-15] MEDS: LEVOTHYROXINE 75 MCG TABLET PO SCH (09:26)
[2020-05-15] MEDS: levETIRAcetam 500 MG TABLET PO SCH ×3 (09:27→21:25)
[2020-05-15] MEDS: TAMSULOSIN 0.4 MG CAPSULE PO SCH (09:27)
[2020-05-15] MEDS: amLODIPine 10 MG TABLET PO SCH (09:27)
[2020-05-15] MEDS: predniSONE 20 MG TABLET PO SCH (09:27)
[2020-05-16] MEDS: INSULIN REGULAR 100 UNIT/ML SUBCUT SCH ×4 (00:42→17:27)
[2020-05-16] MEDS: ALBUTEROL/IPRATROPIUM 3 ML NEB RESP TX SCH ×5 (01:15→19:50)
[2020-05-16 04:50] LABS: Eosinophils % 0.3 % (0.00-10.9); Hematocrit 29.8 VOL% (42.0-52.0); Hemoglobin 9.8 GM/DL (14.0-18.0); Immature Granulocytes % 0.7 %; Immature Granulocytes Absolute 0.05 #; Lymphocytes # 0.6 10*3/uL (1.4-4.0); Lymphocytes % 8.7 % (21.2-54.2); Mean Corpuscular HGB Conc 32.9 GM/DL (32-36); Mean Corpuscular Volume 87.6 FL (87-102); Mean Platelet Volume 10.1 FL (9.6-12.0); Monocytes % 6.4 % (1.7-12.7); Neutrophils % 83.9 % (38.7-73.9); Platelet Count 278 T/CUMM (130-400); Red Cell Distribution Width 13.8 % (9.3-17.3); White Blood Count 7.4 T/CUMM (4-12)
[2020-05-16 05:09] LABS: Calcium 8.4 MG/DL (8.5-10.1); Osmolality,Calculated 283.5 MOS/KG (273-304)
[2020-05-16] MEDS: amLODIPine 10 MG TABLET PO SCH (08:28)
[2020-05-16] MEDS: OLANZapine 2.5 MG TABLET PO SCH (08:28)
[2020-05-16] MEDS: levETIRAcetam 500 MG TABLET PO SCH ×3 (08:28→20:50)
[2020-05-16] MEDS: POLYETHYLENE GLYCOL POWDER 17 GM PACK PO SCH ×2 (08:29→20:50)
[2020-05-16] MEDS: TAMSULOSIN 0.4 MG CAPSULE PO SCH (08:29)
[2020-05-16] MEDS: cloNIDine 0.3 MG/24 HR PATCH TRANSDERM SCH (08:29)
[2020-05-16] MEDS: LEVOTHYROXINE 75 MCG TABLET PO SCH (08:29)
[2020-05-17] MEDS: INSULIN REGULAR 100 UNIT/ML SUBCUT SCH ×4 (00:16→18:08)
[2020-05-17] MEDS: ALBUTEROL/IPRATROPIUM 3 ML NEB RESP TX SCH ×5 (00:40→19:26)
[2020-05-17] MEDS: amLODIPine 10 MG TABLET PO SCH (08:11)
[2020-05-17] MEDS: OLANZapine 2.5 MG TABLET PO SCH (08:11)
[2020-05-17] MEDS: TAMSULOSIN 0.4 MG CAPSULE PO SCH (08:11)
[2020-05-17] MEDS: levETIRAcetam 500 MG TABLET PO SCH ×3 (08:11→21:02)
[2020-05-17] MEDS: POLYETHYLENE GLYCOL POWDER 17 GM PACK PO SCH ×2 (08:12→21:02)
[2020-05-17] MEDS: LEVOTHYROXINE 75 MCG TABLET PO SCH (08:12)
[2020-05-17] MEDS: ZIPRASIDONE 20 MG/1 ML VIAL IM PRN (15:50)
[2020-05-18] MEDS: ALBUTEROL/IPRATROPIUM 3 ML NEB RESP TX SCH ×4 (00:32→19:42)
[2020-05-18] MEDS: INSULIN REGULAR 100 UNIT/ML SUBCUT SCH ×4 (01:40→19:27)
[2020-05-18] MEDS: levETIRAcetam 500 MG TABLET PO SCH ×3 (09:02→20:03)
[2020-05-18] MEDS: LEVOTHYROXINE 75 MCG TABLET PO SCH ×2 (09:02→15:15)
[2020-05-18] MEDS: POLYETHYLENE GLYCOL POWDER 17 GM PACK PO SCH ×3 (09:02→20:03)
[2020-05-18] MEDS: amLODIPine 10 MG TABLET PO SCH ×2 (09:02→15:15)
[2020-05-18] MEDS: OLANZapine 2.5 MG TABLET PO SCH ×2 (09:03→15:15)
[2020-05-18] MEDS: TAMSULOSIN 0.4 MG CAPSULE PO SCH ×2 (09:03→15:14)
[2020-05-18] MEDS: ZIPRASIDONE 20 MG/1 ML VIAL IM PRN ×2 (10:42→22:01)
[2020-05-19] MEDS: ALBUTEROL/IPRATROPIUM 3 ML NEB RESP TX SCH ×4 (00:40→19:21)
[2020-05-19] MEDS: INSULIN REGULAR 100 UNIT/ML SUBCUT SCH ×3 (00:45→13:44)
[2020-05-19 06:31] LABS: Basophils % 0.1 % (0.0-0.8); Eosinophils # 0.1 10*3/uL (0.0-0.87); Eosinophils % 1.2 % (0.00-10.9); Hematocrit 29.8 VOL% (42.0-52.0); Hemoglobin 9.5 GM/DL (14.0-18.0); Immature Granulocytes % 0.8 %; Immature Granulocytes Absolute 0.07 #; Lymphocytes # 1.2 10*3/uL (1.4-4.0); Lymphocytes % 12.5 % (21.2-54.2); Mean Corpuscular HGB Conc 31.9 GM/DL (32-36); Mean Platelet Volume 9.6 FL (9.6-12.0); Monocytes % 8.7 % (1.7-12.7); Neutrophils % 76.7 % (38.7-73.9); Platelet Count 305 T/CUMM (130-400); Red Blood Count 3.35 MC/CUMM (3.8-5.5); Red Cell Distribution Width 14.5 % (9.3-17.3); White Blood Count 9.2 T/CUMM (4-12)
[2020-05-19 06:48] LABS: Calcium 8.7 MG/DL (8.5-10.1); Osmolality,Calculated 280.3 MOS/KG (273-304)
[2020-05-19] MEDS: ZIPRASIDONE 20 MG/1 ML VIAL IM PRN ×2 (10:01→19:50)
[2020-05-19] MEDS: amLODIPine 10 MG TABLET PO SCH (13:43)
[2020-05-19] MEDS: POLYETHYLENE GLYCOL POWDER 17 GM PACK PO SCH ×2 (13:43→20:11)
[2020-05-19] MEDS: levETIRAcetam 500 MG TABLET PO SCH ×2 (13:43→20:11)
[2020-05-19] MEDS: TAMSULOSIN 0.4 MG CAPSULE PO SCH (13:43)
[2020-05-19] MEDS: LEVOTHYROXINE 75 MCG TABLET PO SCH (13:44)
[2020-05-19] MEDS: OLANZapine 2.5 MG TABLET PO SCH (13:44)
[2020-05-20] MEDS: ALBUTEROL/IPRATROPIUM 3 ML NEB RESP TX SCH ×4 (01:05→19:33)
[2020-05-20] MEDS: INSULIN REGULAR 100 UNIT/ML SUBCUT SCH ×4 (01:51→17:44)
[2020-05-20] MEDS ORDERED: HALOPERIDOL 5 MG/ML AMP IM ONE (02:09)
[2020-05-20 07:08] LABS: Calcium 8.3 MG/DL (8.5-10.1); Osmolality,Calculated 277.7 MOS/KG (273-304)
[2020-05-20 07:08] LABS: Basophils % 0.1 % (0.0-0.8); Eosinophils # 0.1 10*3/uL (0.0-0.87); Eosinophils % 0.7 % (0.00-10.9); Hematocrit 29.4 VOL% (42.0-52.0); Hemoglobin 8.8 GM/DL (14.0-18.0); Immature Granulocytes % 0.7 %; Immature Granulocytes Absolute 0.05 #; Lymphocytes # 0.7 10*3/uL (1.4-4.0); Lymphocytes % 10.7 % (21.2-54.2); Mean Corpuscular HGB Conc 29.9 GM/DL (32-36); Mean Corpuscular Volume 94.2 FL (87-102); Mean Platelet Volume 9.4 FL (9.6-12.0); Monocytes % 11.2 % (1.7-12.7); Neutrophils % 76.6 % (38.7-73.9); Platelet Count 252 T/CUMM (130-400); Red Blood Count 3.12 MC/CUMM (3.8-5.5); Red Cell Distribution Width 14.6 % (9.3-17.3); White Blood Count 6.9 T/CUMM (4-12)
[2020-05-20] MEDS: TAMSULOSIN 0.4 MG CAPSULE PO SCH (08:44)
[2020-05-20] MEDS: POLYETHYLENE GLYCOL POWDER 17 GM PACK PO SCH ×2 (08:44→22:02)
[2020-05-20] MEDS: LEVOTHYROXINE 75 MCG TABLET PO SCH (08:44)
[2020-05-20] MEDS: OLANZapine 2.5 MG TABLET PO SCH (08:45)
[2020-05-20] MEDS: amLODIPine 10 MG TABLET PO SCH (08:45)
[2020-05-20] MEDS: levETIRAcetam 500 MG TABLET PO SCH ×4 (08:48→22:02)
[2020-05-20] MEDS: ZIPRASIDONE 20 MG/1 ML VIAL IM PRN (11:20)
[2020-05-20] MEDS: FERROUS SULFATE 325 MG TABLET PO SCH (17:44)
[2020-05-20] MEDS ORDERED: ARIPiprazole 5 MG TABLET PO SCH (21:00)
[2020-05-21] MEDS: ALBUTEROL/IPRATROPIUM 3 ML NEB RESP TX SCH ×2 (00:17→07:21)
[2020-05-21] MEDS: INSULIN REGULAR 100 UNIT/ML SUBCUT SCH ×3 (05:05→12:02)
[2020-05-21] MEDS: LEVOTHYROXINE 75 MCG TABLET PO SCH (08:28)
[2020-05-21] MEDS: OLANZapine 2.5 MG TABLET PO SCH (08:28)
[2020-05-21] MEDS: FERROUS SULFATE 325 MG TABLET PO SCH (08:28)
[2020-05-21] MEDS: levETIRAcetam 500 MG TABLET PO SCH (08:28)
[2020-05-21] MEDS: amLODIPine 10 MG TABLET PO SCH (08:28)
[2020-05-21] MEDS: TAMSULOSIN 0.4 MG CAPSULE PO SCH (08:28)
[2020-05-21] MEDS: POLYETHYLENE GLYCOL POWDER 17 GM PACK PO SCH (08:29)
[2020-05-21] MEDS ORDERED: ARIPiprazole 5 MG TABLET PO SCH (09:00)
[2020-05-21 12:02] VITALS: BP 135/50
== END 2020-05-21 12:18 | DRG 922 ==
LOC: EDBD → EDUNIT# → N.ED 11:37 → SUATTDRO 14:29 → N.EDINP 14:29 → N.CC 15:31 → N.3E 05-03 18:06 → N.ICU 05-06 08:03 → N.5E 05-09 16:27
PROVIDERS: ADMIT Internal Medicine; ATTEND Internal Medicine

== ENCOUNTER 2020-07-08 19:42 | Inpatient (IN) ==
[2020-07-08 20:53] LABS: Basophils % 0.2 % (0.0-0.8); Eosinophils % 0.2 % (0.00-10.9); Hematocrit 27.1 VOL% (42.0-52.0); Hemoglobin 8.5 GM/DL (14.0-18.0); Immature Granulocytes % 0.5 %; Immature Granulocytes Absolute 0.06 #; Lymphocytes # 0.5 10*3/uL (1.4-4.0); Lymphocytes % 4.1 % (21.2-54.2); Mean Corpuscular HGB Conc 31.4 GM/DL (32-36); Mean Corpuscular Volume 90.9 FL (87-102); Mean Platelet Volume 11.6 FL (9.6-12.0); Monocytes % 4.2 % (1.7-12.7); NRBC # 0.02 10*3/uL; Neutrophils % 90.8 % (38.7-73.9); Platelet Count 86 T/CUMM (130-400); Red Blood Count 2.98 MC/CUMM (3.8-5.5); Red Cell Distribution Width 18.9 % (9.3-17.3); White Blood Count 12.7 T/CUMM (4-12)
[2020-07-08 21:03] LABS: Alanine Aminotransferase 27 U/L (16-61); Albumin 2.2 G/DL (3.4-5.0); Alkaline Phosphatase 134 U/L (45-117); Aspartate Amino Transferase 29 U/L (0-37); Bilirubin,Total < 0.39 MG/DL (0.2-1.0); Blood Urea Nitrogen 39 MG/DL (7-18); Calcium 8.5 MG/DL (8.5-10.1); Carbon Dioxide 31 MMOL/L (21-32); Estimated Glom Filtration Rate 37 ML/MIN; Glucose 95 MG/DL (74-106); Potassium 4.4 MMOL/L (3.5-5.1); Sodium 143 MMOL/L (136-145)
[2020-07-08 21:15] LABS: Acanthocytes 1+; Anisocytosis 3+; Hypochromasia 1+; Lymphocytes 3 % (20-55); Microcytosis 1+; Poikilocytosis 1+; Segmented Neutrophils 93 % (50-85); Tear Drop Cells 2+; Total Cells Counted 100
[2020-07-08] MEDS ORDERED: SODIUM CHLORIDE 0.9% 1,000 ML IV STA (21:18)
[2020-07-09] MEDS ORDERED: GLUCAGON 1 MG VIAL IM PRN (02:14)
[2020-07-09] MEDS ORDERED: ONDANSETRON 4 MG/2 ML VIAL IV PRN (02:14)
[2020-07-09] MEDS ORDERED: ACETAMINOPHEN 325 MG TABLET PO PRN (02:14)
[2020-07-09 07:29] LABS: Basophils % 0.1 % (0.0-0.8); Eosinophils % 0.3 % (0.00-10.9); Hematocrit 27.7 VOL% (42.0-52.0); Hemoglobin 8.7 GM/DL (14.0-18.0); Immature Granulocytes % 0.6 %; Immature Granulocytes Absolute 0.07 #; Lymphocytes # 0.7 10*3/uL (1.4-4.0); Lymphocytes % 6.6 % (21.2-54.2); Mean Corpuscular HGB Conc 31.4 GM/DL (32-36); Mean Corpuscular Volume 90.2 FL (87-102); Mean Platelet Volume 11.5 FL (9.6-12.0); Monocytes % 3.5 % (1.7-12.7); NRBC # 0.03 10*3/uL; Neutrophils % 88.9 % (38.7-73.9); Platelet Count 93 T/CUMM (130-400); Red Blood Count 3.07 MC/CUMM (3.8-5.5); Red Cell Distribution Width 18.8 % (9.3-17.3); White Blood Count 11.3 T/CUMM (4-12)
[2020-07-09 07:52] LABS: Albumin 2.2 G/DL (3.4-5.0); Band Neutrophils 1 % (0-10); Bilirubin,Total 0.5 MG/DL (0.2-1.0); Calcium 8.8 MG/DL (8.5-10.1); Hypochromasia 1+; Lymphocytes 7 % (20-55); Microcytosis 1+; Ovalocytes Slight; Platelet Estimate Decreased; Potassium 4.4 MMOL/L (3.5-5.1); Segmented Neutrophils 90 % (50-85); Total Cells Counted 100; Total Protein 6.1 G/DL (6.4-8.3)
[2020-07-09] MEDS: ENOXAPARIN 40 MG/0.4 ML SYRINGE SUBCUT SCH (08:10)
[2020-07-09] MEDS ORDERED: PANTOPRAZOLE 40 MG TABLET PO SCH (09:00)
[2020-07-09] MEDS: SKIN HEALING OINT (AQUAPHOR) 50 GM TUBE TOP SCH (17:20)
[2020-07-09] MEDS: DEXTROSE 50% 25 GM/50 ML VIAL IV PRN (19:50)
[2020-07-09] MEDS: levETIRAcetam 500 MG TABLET PO SCH (20:43)
[2020-07-10] MEDS: DEXTROSE 50% 25 GM/50 ML VIAL IV PRN (07:12)
[2020-07-10] MEDS: levETIRAcetam 500 MG TABLET PO SCH ×2 (08:26→21:34)
[2020-07-10] MEDS: ENOXAPARIN 40 MG/0.4 ML SYRINGE SUBCUT SCH (08:28)
[2020-07-10] MEDS: SKIN HEALING OINT (AQUAPHOR) 50 GM TUBE TOP SCH (08:28)
[2020-07-10] MEDS: DEXTROSE 5% NACL 0.9% 1,000 ML IV SCH ×2 (08:29→21:33)
[2020-07-10] MEDS: ZALEPLON 5 MG CAPSULE PO PRN (21:34)
[2020-07-11] MEDS: ENOXAPARIN 40 MG/0.4 ML SYRINGE SUBCUT SCH (09:02)
[2020-07-11] MEDS: SKIN HEALING OINT (AQUAPHOR) 50 GM TUBE TOP SCH (09:02)
[2020-07-11] MEDS: levETIRAcetam 500 MG TABLET PO SCH ×2 (09:02→20:15)
[2020-07-11] MEDS: DEXTROSE 5% NACL 0.9% 1,000 ML IV SCH ×2 (10:17→20:17)
[2020-07-12] MEDS: DEXTROSE 50% 25 GM/50 ML VIAL IV PRN ×9 (00:49→23:33)
[2020-07-12 06:28] LABS: PT Patient Result 10.3 SECS (9.8-11.9)
[2020-07-12] MEDS: DEXTROSE 5% NACL 0.9% 1,000 ML IV SCH (07:10)
[2020-07-12] MEDS ORDERED: ceFAZolin 1,000 MG in SYRINGE 1 EACH IV ONE (08:00)
[2020-07-12] MEDS: DEXTROSE 5% 1,000 ML IV SCH (09:02)
[2020-07-12] MEDS: SKIN HEALING OINT (AQUAPHOR) 50 GM TUBE TOP SCH (10:04)
[2020-07-12] MEDS: levETIRAcetam 500 MG TABLET PO SCH ×2 (10:04→20:39)
[2020-07-12] MEDS: SODIUM CHLORIDE 0.9% 1,000 ML IV SCH (10:04)
[2020-07-12] MEDS ORDERED: propofoL 200 MG/20 ML VIAL IV ONE (11:31)
[2020-07-12] MEDS ORDERED: ETOMIDATE 20 MG/10 ML VIAL IV ONE (11:31)
[2020-07-12] MEDS ORDERED: LIDOCAINE 2% 5 ML VIAL ONE (11:31)
[2020-07-12] MEDS ORDERED: PHENYLEPHRINE 1 MG/10 ML SYRINGE IV ONE (11:49)
[2020-07-12] MEDS: ZALEPLON 5 MG CAPSULE PO PRN (23:35)
[2020-07-13] MEDS: DEXTROSE 5% 1,000 ML IV SCH ×2 (01:44→18:10)
[2020-07-13] MEDS: DEXTROSE 50% 25 GM/50 ML VIAL IV PRN ×2 (03:54→06:10)
[2020-07-13] MEDS ORDERED: HYDROCORTISONE 100 MG VIAL IV ONE (05:00)
[2020-07-13] MEDS: SODIUM CHLORIDE 0.9% 1,000 ML IV SCH (07:01)
[2020-07-13 07:08] LABS: Calcium 8.4 MG/DL (8.5-10.1); Osmolality,Calculated 278.5 MOS/KG (273-304); Potassium 5.3 MMOL/L (3.5-5.1)
[2020-07-13] MEDS: levETIRAcetam 500 MG TABLET PO SCH ×2 (08:39→20:32)
[2020-07-13] MEDS: SKIN HEALING OINT (AQUAPHOR) 50 GM TUBE TOP SCH (08:39)
[2020-07-13] MEDS: ZALEPLON 5 MG CAPSULE PO PRN (20:33)
[2020-07-14] MEDS: SKIN HEALING OINT (AQUAPHOR) 50 GM TUBE TOP SCH (09:25)
[2020-07-14] MEDS: levETIRAcetam 500 MG TABLET PO SCH ×2 (09:25→20:34)
[2020-07-14] MEDS: DEXTROSE 5% 1,000 ML IV SCH ×2 (09:25→17:56)
[2020-07-14] MEDS: SODIUM CHLORIDE 0.9% 1,000 ML IV SCH (09:35)
[2020-07-14] MEDS: FERROUS SULFATE 325 MG TABLET PO SCH ×2 (15:05→20:34)
[2020-07-14] MEDS: ARIPiprazole 5 MG TABLET PO SCH (15:05)
[2020-07-14] MEDS: traZODone 50 MG TABLET PO SCH (20:35)
[2020-07-14] MEDS ORDERED: ARIPiprazole 5 MG TABLET PO SCH (21:00)
[2020-07-15] MEDS: DEXTROSE 5% 1,000 ML IV SCH ×3 (03:05→20:54)
[2020-07-15 06:56] LABS: Basophils % 0.2 % (0.0-0.8); Eosinophils # 0.1 10*3/uL (0.0-0.87); Eosinophils % 1.4 % (0.00-10.9); Hematocrit 27.1 VOL% (42.0-52.0); Hemoglobin 8.8 GM/DL (14.0-18.0); Immature Granulocytes % 0.8 %; Immature Granulocytes Absolute 0.05 #; Lymphocytes # 0.6 10*3/uL (1.4-4.0); Mean Corpuscular HGB Conc 32.5 GM/DL (32-36); Mean Corpuscular Volume 88.3 FL (87-102); Mean Platelet Volume 11.2 FL (9.6-12.0); Monocytes % 8.3 % (1.7-12.7); Neutrophils % 79.3 % (38.7-73.9); Red Blood Count 3.07 MC/CUMM (3.8-5.5); Red Cell Distribution Width 18.8 % (9.3-17.3); White Blood Count 6.3 T/CUMM (4-12)
[2020-07-15 06:59] LABS: Platelet Count 77 T/CUMM (130-400)
[2020-07-15] MEDS: LEVOTHYROXINE 75 MCG TABLET PO SCH (07:06)
[2020-07-15 07:13] LABS: Calcium 8.8 MG/DL (8.5-10.1); Osmolality,Calculated 278.5 MOS/KG (273-304); Potassium 3.7 MMOL/L (3.5-5.1)
[2020-07-15 07:41] LABS: Calcium 8.1 MG/DL (8.5-10.1); Osmolality,Calculated 283.3 MOS/KG (273-304); Potassium 4.4 MMOL/L (3.5-5.1)
[2020-07-15 07:45] LABS: Atypical Lymphocytes Few; Band Neutrophils 1 % (0-10); Eosinophils 2 % (0-10); Lymphocytes 12 % (20-55); Metamyelocytes 1 %; Polychromasia Slight; Segmented Neutrophils 72 % (50-85); Total Cells Counted 100
[2020-07-15 07:46] LABS: Hypochromasia 1+; Platelet Estimate Adequate; Schistocytes Few; Target Cells 1+
[2020-07-15] MEDS: FERROUS SULFATE 325 MG TABLET PO SCH ×3 (10:39→21:03)
[2020-07-15] MEDS: levETIRAcetam 500 MG TABLET PO SCH ×2 (10:39→21:03)
[2020-07-15] MEDS: TAMSULOSIN 0.4 MG CAPSULE PO SCH (10:39)
[2020-07-15] MEDS: SKIN HEALING OINT (AQUAPHOR) 50 GM TUBE TOP SCH (10:40)
[2020-07-15 10:41] LABS: Thyroid Stimulating Hormone 2.74 uIU/ml (0.358-3.74)
[2020-07-15] MEDS: ARIPiprazole 5 MG TABLET PO SCH (10:43)
[2020-07-15] MEDS: SODIUM CHLORIDE 0.9% 1,000 ML IV SCH (10:47)
[2020-07-15] MEDS: AMPICILLIN/SULBACTAM 3,000 MG in SODIUM CHLORIDE 0.9% 100 ML IV SCH (17:59)
[2020-07-15] MEDS: traZODone 50 MG TABLET PO SCH (21:03)
[2020-07-16] MEDS: AMPICILLIN/SULBACTAM 3,000 MG in SODIUM CHLORIDE 0.9% 100 ML IV SCH ×3 (00:18→18:31)
[2020-07-16] MEDS: DEXTROSE 5% 1,000 ML IV SCH ×3 (05:52→23:10)
[2020-07-16] MEDS: LEVOTHYROXINE 75 MCG TABLET PO SCH (06:02)
[2020-07-16] MEDS: TAMSULOSIN 0.4 MG CAPSULE PO SCH (09:58)
[2020-07-16] MEDS: SKIN HEALING OINT (AQUAPHOR) 50 GM TUBE TOP SCH (09:58)
[2020-07-16] MEDS: levETIRAcetam 500 MG TABLET PO SCH ×2 (09:58→22:07)
[2020-07-16] MEDS: FERROUS SULFATE 325 MG TABLET PO SCH ×3 (09:58→22:07)
[2020-07-16] MEDS: SODIUM CHLORIDE 0.9% 1,000 ML IV SCH (13:38)
[2020-07-16] MEDS: traZODone 50 MG TABLET PO SCH (22:07)
[2020-07-17] MEDS: AMPICILLIN/SULBACTAM 3,000 MG in SODIUM CHLORIDE 0.9% 100 ML IV SCH ×2 (00:34→09:40)
[2020-07-17 05:25] LABS: Basophils % 0.1 % (0.0-0.8); Eosinophils # 0.1 10*3/uL (0.0-0.87); Eosinophils % 1.1 % (0.00-10.9); Hematocrit 25.4 VOL% (42.0-52.0); Hemoglobin 8.2 GM/DL (14.0-18.0); Immature Granulocytes Absolute 0.08 #; Lymphocytes # 1.1 10*3/uL (1.4-4.0); Lymphocytes % 13.2 % (21.2-54.2); Mean Corpuscular HGB Conc 32.3 GM/DL (32-36); Mean Corpuscular Volume 87.6 FL (87-102); Mean Platelet Volume 11.9 FL (9.6-12.0); Monocytes % 10.2 % (1.7-12.7); Neutrophils % 74.4 % (38.7-73.9); Platelet Count 94 T/CUMM (130-400); Red Cell Distribution Width 18.5 % (9.3-17.3); White Blood Count 8.1 T/CUMM (4-12)
[2020-07-17 05:40] LABS: Calcium 8.6 MG/DL (8.5-10.1); Osmolality,Calculated 262.8 MOS/KG (273-304); Potassium 4.2 MMOL/L (3.5-5.1)
[2020-07-17 05:56] LABS: Anisocytosis 1+; Macrocytosis 1+; Platelet Estimate Decreased; Poikilocytosis Slight
[2020-07-17] MEDS: LEVOTHYROXINE 75 MCG TABLET PO SCH (06:28)
[2020-07-17] MEDS: FERROUS SULFATE 325 MG TABLET PO SCH (09:40)
[2020-07-17] MEDS: SKIN HEALING OINT (AQUAPHOR) 50 GM TUBE TOP SCH (09:40)
[2020-07-17] MEDS: levETIRAcetam 500 MG TABLET PO SCH (09:40)
[2020-07-17] MEDS: TAMSULOSIN 0.4 MG CAPSULE PO SCH (09:40)
[2020-07-17] MEDS: DEXTROSE 5% 1,000 ML IV SCH (09:45)
[2020-07-17] MEDS: SODIUM CHLORIDE 0.9% 1,000 ML IV SCH (10:33)
[2020-07-17 12:03] VITALS: BP 134/44
== END 2020-07-17 12:55 | DRG 100 ==
LOC: EDBD → EDUNIT# → N.EDINP 19:42 → N.ED 19:42 → N.EDINP 07-09 03:38 → N.5E 07-09 04:07 → SUATTDRO 07-11 13:27
PROVIDERS: ADMIT Family Medicine; ATTEND Emergency Medicine
PROC: EGDWPEG (ICD-10-PCS; 2020-07-12 09:35)

== ENCOUNTER 2020-09-25 16:26 | Inpatient (IN) ==
[2020-09-25 17:29] LABS: Basophils % 0.2 % (0.0-0.8); Eosinophils # 0.2 10*3/uL (0.0-0.87); Eosinophils % 2.9 % (0.00-10.9); Hematocrit 23.3 VOL% (42.0-52.0); Immature Granulocytes % 0.4 %; Immature Granulocytes Absolute 0.02 #; Lymphocytes # 1.4 10*3/uL (1.4-4.0); Lymphocytes % 25.5 % (21.2-54.2); Mean Platelet Volume 10.9 FL (9.6-12.0); Monocytes % 15.8 % (1.7-12.7); Neutrophils % 55.2 % (38.7-73.9); Platelet Count 148 T/CUMM (130-400); Red Blood Count 2.33 MC/CUMM (3.8-5.5); Red Cell Distribution Width 18.5 % (9.3-17.3); White Blood Count 5.5 T/CUMM (4-12)
[2020-09-25 17:45] LABS: PT Patient Result 10.8 SECS (9.8-11.9); Partial Thromboplastin Time 31.2 SECS (23.9-33.8)
[2020-09-25 17:50] LABS: Alanine Aminotransferase 24 U/L (16-61); Albumin 2.5 G/DL (3.4-5.0); Alkaline Phosphatase 100 U/L (45-117); Aspartate Amino Transferase 24 U/L (0-37); Bilirubin,Total < 0.39 MG/DL (0.2-1.0); Blood Urea Nitrogen 49 MG/DL (7-18); Calcium 8.7 MG/DL (8.5-10.1); Carbon Dioxide 26 MMOL/L (21-32); Glucose 77 MG/DL (74-106); Osmolality,Calculated 307.1 MOS/KG (273-304); Potassium 4.2 MMOL/L (3.5-5.1); Sodium 149 MMOL/L (136-145); Total Protein 6.3 G/DL (6.4-8.2); Troponin I < 0.015 NG/ML (0.00-0.045)
[2020-09-25 17:51] LABS: Estimated Glom Filtration Rate 0 ML/MIN
[2020-09-25 18:04] LABS: Eosinophils 7 % (0-10); Lymphocytes 36 % (20-55); Nucleated Red Blood Cells 1 (0-5); Segmented Neutrophils 42 % (50-85); Total Cells Counted 100
[2020-09-25 18:09] LABS: Anisocytosis 1+
[2020-09-25 18:10] LABS: Hypochromasia 1+
[2020-09-25 18:14] LABS: Polychromasia Few
[2020-09-25 18:15] LABS: Platelet Estimate Adequate
[2020-09-25] MEDS ORDERED: cefTRIAXone 1,000 MG in SODIUM CHLORIDE 0.9% 100 ML IV STA (18:53)
[2020-09-25] MEDS ORDERED: GLUCAGON 1 MG VIAL IM PRN (19:02)
[2020-09-25] MEDS ORDERED: DEXTROSE 50% 25 GM/50 ML VIAL IV PRN (19:02)
[2020-09-25] MEDS ORDERED: SODIUM CHLORIDE 0.9% 1,000 ML IV PRN (19:52)
[2020-09-25] MEDS: INSULIN LISPRO 100 UNIT/ML SUBCUT SCH (22:22)
[2020-09-25] MEDS: SODIUM BICARBONATE 650 MG TABLET PO SCH (22:24)
[2020-09-25] MEDS: FERROUS SULFATE 325 MG TABLET PO SCH (22:24)
[2020-09-25] MEDS: traZODone 50 MG TABLET PO SCH (22:24)
[2020-09-25] MEDS: levETIRAcetam 500 MG TABLET PO SCH (22:24)
[2020-09-25] MEDS: ENOXAPARIN 40 MG/0.4 ML SYRINGE SUBCUT SCH (22:27)
[2020-09-25] MEDS: AZITHROMYCIN INJ 250 MG in SODIUM CHLORIDE 0.9% 250 ML IV SCH (23:26)
[2020-09-26] MEDS ORDERED: LEVOTHYROXINE 75 MCG TABLET PO SCH (07:00)
[2020-09-26] MEDS: INSULIN LISPRO 100 UNIT/ML SUBCUT SCH ×4 (09:19→21:37)
[2020-09-26] MEDS: FERROUS SULFATE 325 MG TABLET PO SCH ×3 (09:34→21:17)
[2020-09-26] MEDS: levETIRAcetam 500 MG TABLET PO SCH ×3 (09:34→21:17)
[2020-09-26] MEDS: SODIUM BICARBONATE 650 MG TABLET PO SCH ×2 (09:34→21:17)
[2020-09-26] MEDS: ARIPiprazole 5 MG TABLET PO SCH (09:40)
[2020-09-26 10:30] LABS: Basophils % 0.2 % (0.0-0.8); Eosinophils # 0.2 10*3/uL (0.0-0.87); Eosinophils % 3.2 % (0.00-10.9); Hematocrit 29.9 VOL% (42.0-52.0); Immature Granulocytes % 0.2 %; Immature Granulocytes Absolute 0.01 #; Lymphocytes # 1.1 10*3/uL (1.4-4.0); Mean Corpuscular HGB Conc 30.8 GM/DL (32-36); Mean Corpuscular Volume 95.5 FL (87-102); Mean Platelet Volume 11.6 FL (9.6-12.0); Monocytes % 12.3 % (1.7-12.7); Neutrophils % 62.1 % (38.7-73.9); Platelet Count 142 T/CUMM (130-400); Red Cell Distribution Width 20.4 % (9.3-17.3)
[2020-09-26 10:31] LABS: Hemoglobin 9.2 GM/DL (14.0-18.0); Red Blood Count 3.13 MC/CUMM (3.8-5.5)
[2020-09-26 10:48] LABS: Eosinophils 4 % (0-10); Lymphocytes 20 % (20-55); Segmented Neutrophils 65 % (50-85); Total Cells Counted 100
[2020-09-26 10:49] LABS: Hypochromasia 1+; Microcytosis 1+; Platelet Estimate Adequate
[2020-09-26 10:53] LABS: Calcium 8.9 MG/DL (8.5-10.1); Osmolality,Calculated 295.8 MOS/KG (273-304); Potassium 4.3 MMOL/L (3.5-5.1); Risk Ratio 1.87; VLDL CHOLESTEROL 11.6 MG/DL
[2020-09-26] MEDS: TAMSULOSIN 0.4 MG CAPSULE PO SCH (11:29)
[2020-09-26] MEDS: ZINC OXIDE PASTE 113 GM TUBE TOP SCH ×2 (15:04→21:17)
[2020-09-26] MEDS: ENOXAPARIN 40 MG/0.4 ML SYRINGE SUBCUT SCH (21:17)
[2020-09-26] MEDS: traZODone 50 MG TABLET PO SCH (21:17)
[2020-09-26] MEDS: cefTRIAXone 1,000 MG in SODIUM CHLORIDE 0.9% 100 ML IV SCH (21:17)
[2020-09-26] MEDS: AZITHROMYCIN INJ 250 MG in SODIUM CHLORIDE 0.9% 250 ML IV SCH (22:51)
[2020-09-26 23:23] LABS: Total Protein 24 Hr Ur Result 73 MG/24HR (0-149.1); Total Volume,Urine 525 ML (400-2000)
[2020-09-27 05:24] LABS: Basophils % 0.2 % (0.0-0.8); Eosinophils # 0.2 10*3/uL (0.0-0.87); Eosinophils % 3.3 % (0.00-10.9); Hematocrit 27.7 VOL% (42.0-52.0); Hemoglobin 8.3 GM/DL (14.0-18.0); Immature Granulocytes % 0.4 %; Immature Granulocytes Absolute 0.02 #; Lymphocytes # 1.2 10*3/uL (1.4-4.0); Lymphocytes % 22.5 % (21.2-54.2); Mean Corpuscular Volume 96.9 FL (87-102); Mean Platelet Volume 11.4 FL (9.6-12.0); Monocytes % 14.9 % (1.7-12.7); Neutrophils % 58.7 % (38.7-73.9); Platelet Count 126 T/CUMM (130-400); Red Blood Count 2.86 MC/CUMM (3.8-5.5); Red Cell Distribution Width 20.7 % (9.3-17.3); White Blood Count 5.4 T/CUMM (4-12)
[2020-09-27 06:02] LABS: Calcium 8.3 MG/DL (8.5-10.1); Osmolality,Calculated 300.4 MOS/KG (273-304); Potassium 4.6 MMOL/L (3.5-5.1)
[2020-09-27] MEDS: LEVOTHYROXINE 88 MCG TABLET PO SCH (06:04)
[2020-09-27] MEDS: SODIUM BICARBONATE 650 MG TABLET PO SCH ×2 (08:26→20:54)
[2020-09-27] MEDS: levETIRAcetam 500 MG TABLET PO SCH ×3 (08:26→20:54)
[2020-09-27] MEDS: TAMSULOSIN 0.4 MG CAPSULE PO SCH (08:26)
[2020-09-27] MEDS: ARIPiprazole 5 MG TABLET PO SCH (08:26)
[2020-09-27] MEDS: FERROUS SULFATE 325 MG TABLET PO SCH ×3 (08:26→20:54)
[2020-09-27] MEDS: ZINC OXIDE PASTE 113 GM TUBE TOP SCH ×2 (08:27→20:55)
[2020-09-27] MEDS: INSULIN LISPRO 100 UNIT/ML SUBCUT SCH ×4 (09:06→20:12)
[2020-09-27 13:39] LABS: Hepatitis B Core IgM Quant 0.08 Index; Hepatitis B Surface Ag Quant < 0.10 Index; Hepatitis B Surface Ag Result Non-Reactive (NonReactive); Hepatitis C Virus Ab Quant 0.36 Index; Hepatitis C Virus Ab Result Non-Reactive (NonReactive)
[2020-09-27] MEDS: traZODone 50 MG TABLET PO SCH (20:54)
[2020-09-27] MEDS: ENOXAPARIN 40 MG/0.4 ML SYRINGE SUBCUT SCH (20:55)
[2020-09-27] MEDS: cefTRIAXone 1,000 MG in SODIUM CHLORIDE 0.9% 100 ML IV SCH (20:55)
[2020-09-27] MEDS: AZITHROMYCIN INJ 250 MG in SODIUM CHLORIDE 0.9% 250 ML IV SCH (21:26)
[2020-09-28 06:08] LABS: Basophils % 0.2 % (0.0-0.8); Eosinophils # 0.2 10*3/uL (0.0-0.87); Eosinophils % 2.5 % (0.00-10.9); Hematocrit 27.5 VOL% (42.0-52.0); Hemoglobin 8.6 GM/DL (14.0-18.0); Immature Granulocytes % 0.3 %; Immature Granulocytes Absolute 0.02 #; Lymphocytes % 15.9 % (21.2-54.2); Mean Corpuscular HGB Conc 31.3 GM/DL (32-36); Mean Corpuscular Volume 95.2 FL (87-102); Mean Platelet Volume 11.5 FL (9.6-12.0); Monocytes % 16.9 % (1.7-12.7); Neutrophils % 64.2 % (38.7-73.9); Platelet Count 112 T/CUMM (130-400); Red Blood Count 2.89 MC/CUMM (3.8-5.5); White Blood Count 6.1 T/CUMM (4-12)
[2020-09-28] MEDS: LEVOTHYROXINE 88 MCG TABLET PO SCH (06:10)
[2020-09-28 06:33] LABS: Eosinophils 2 % (0-10); Lymphocytes 17 % (20-55); Myelocytes 1 %; Platelet Estimate Normal; Segmented Neutrophils 68 % (50-85); Total Cells Counted 100
[2020-09-28 06:34] LABS: Hypochromasia Slight
[2020-09-28] MEDS: TAMSULOSIN 0.4 MG CAPSULE PO SCH ×2 (08:57→20:55)
[2020-09-28] MEDS: SODIUM BICARBONATE 650 MG TABLET PO SCH ×2 (08:57→20:55)
[2020-09-28] MEDS: ARIPiprazole 5 MG TABLET PO SCH (08:57)
[2020-09-28] MEDS: ZINC OXIDE PASTE 113 GM TUBE TOP SCH ×2 (08:58→20:55)
[2020-09-28] MEDS: levETIRAcetam 500 MG TABLET PO SCH ×3 (08:58→20:55)
[2020-09-28] MEDS: FERROUS SULFATE 325 MG TABLET PO SCH ×3 (09:01→20:55)
[2020-09-28] MEDS: INSULIN LISPRO 100 UNIT/ML SUBCUT SCH ×4 (09:08→22:21)
[2020-09-28 13:01] LABS: Potassium 5.1 MMOL/L (3.5-5.1)
[2020-09-28] MEDS: ALBUTEROL/IPRATROPIUM 3 ML NEB RESP TX SCH ×2 (14:21→20:08)
[2020-09-28] MEDS: cefTRIAXone 1,000 MG in SODIUM CHLORIDE 0.9% 100 ML IV SCH (20:55)
[2020-09-28] MEDS: ENOXAPARIN 40 MG/0.4 ML SYRINGE SUBCUT SCH (20:55)
[2020-09-28] MEDS: traZODone 50 MG TABLET PO SCH (20:55)
[2020-09-28] MEDS: AZITHROMYCIN INJ 250 MG in SODIUM CHLORIDE 0.9% 250 ML IV SCH (21:37)
[2020-09-29] MEDS: ALBUTEROL/IPRATROPIUM 3 ML NEB RESP TX SCH ×4 (01:02→21:30)
[2020-09-29 05:17] LABS: Basophils % 0.1 % (0.0-0.8); Eosinophils # 0.1 10*3/uL (0.0-0.87); Eosinophils % 1.7 % (0.00-10.9); Hematocrit 30.3 VOL% (42.0-52.0); Hemoglobin 8.8 GM/DL (14.0-18.0); Immature Granulocytes % 0.3 %; Immature Granulocytes Absolute 0.02 #; Lymphocytes # 0.8 10*3/uL (1.4-4.0); Lymphocytes % 10.4 % (21.2-54.2); Mean Platelet Volume 11.4 FL (9.6-12.0); Monocytes % 17.1 % (1.7-12.7); Neutrophils % 70.4 % (38.7-73.9); Platelet Count 119 T/CUMM (130-400); Red Blood Count 2.97 MC/CUMM (3.8-5.5); Red Cell Distribution Width 19.7 % (9.3-17.3); White Blood Count 7.5 T/CUMM (4-12)
[2020-09-29 05:33] LABS: Albumin 2.1 G/DL (3.4-5.0); Bilirubin,Total 1.1 MG/DL (0.2-1.0); Calcium 8.7 MG/DL (8.5-10.1); Osmolality,Calculated 290.1 MOS/KG (273-304); Potassium 5.3 MMOL/L (3.5-5.1)
[2020-09-29 06:03] LABS: Eosinophils 2 % (0-10); Hypochromasia 1+; Lymphocytes 14 % (20-55); Segmented Neutrophils 70 % (50-85); Total Cells Counted 100
[2020-09-29] MEDS: LEVOTHYROXINE 88 MCG TABLET PO SCH (06:07)
[2020-09-29] MEDS: INSULIN LISPRO 100 UNIT/ML SUBCUT SCH ×4 (08:04→23:26)
[2020-09-29] MEDS: SODIUM BICARBONATE 650 MG TABLET PO SCH ×2 (09:35→21:01)
[2020-09-29] MEDS: levETIRAcetam 500 MG TABLET PO SCH ×3 (09:37→21:01)
[2020-09-29] MEDS: TAMSULOSIN 0.4 MG CAPSULE PO SCH ×2 (09:37→21:01)
[2020-09-29] MEDS: ARIPiprazole 5 MG TABLET PO SCH (09:37)
[2020-09-29] MEDS: FERROUS SULFATE 325 MG TABLET PO SCH ×3 (09:37→21:01)
[2020-09-29] MEDS: PIPERACILLIN/TAZOBACTAM 3,375 MG in SODIUM CHLORIDE 0.9% 100 ML IV SCH ×3 (10:55→18:15)
[2020-09-29] MEDS: ZINC OXIDE PASTE 113 GM TUBE TOP SCH ×2 (11:01→21:01)
[2020-09-29] MEDS: VANCOMYCIN INJ 1,750 MG in SODIUM CHLORIDE 0.9% 500 ML IV SCH (14:29)
[2020-09-29] MEDS: ENOXAPARIN 40 MG/0.4 ML SYRINGE SUBCUT SCH (21:01)
[2020-09-29] MEDS: traZODone 50 MG TABLET PO SCH (21:02)
[2020-09-30] MEDS: PIPERACILLIN/TAZOBACTAM 3,375 MG in SODIUM CHLORIDE 0.9% 100 ML IV SCH ×3 (00:51→20:49)
[2020-09-30] MEDS: ALBUTEROL/IPRATROPIUM 3 ML NEB RESP TX SCH ×4 (02:54→19:24)
[2020-09-30] MEDS: LEVOTHYROXINE 88 MCG TABLET PO SCH (06:36)
[2020-09-30] MEDS: VANCOMYCIN INJ 1,750 MG in SODIUM CHLORIDE 0.9% 500 ML IV SCH (06:39)
[2020-09-30 06:46] LABS: Basophils % 0.3 % (0.0-0.8); Eosinophils # 0.2 10*3/uL (0.0-0.87); Eosinophils % 2.1 % (0.00-10.9); Hematocrit 28.5 VOL% (42.0-52.0); Hemoglobin 8.6 GM/DL (14.0-18.0); Immature Granulocytes % 0.6 %; Immature Granulocytes Absolute 0.05 #; Lymphocytes # 0.9 10*3/uL (1.4-4.0); Lymphocytes % 10.7 % (21.2-54.2); Mean Corpuscular HGB Conc 30.2 GM/DL (32-36); Mean Corpuscular Volume 97.3 FL (87-102); Mean Platelet Volume 11.2 FL (9.6-12.0); Monocytes % 13.2 % (1.7-12.7); Neutrophils % 73.1 % (38.7-73.9); Platelet Count 126 T/CUMM (130-400); Red Blood Count 2.93 MC/CUMM (3.8-5.5); Red Cell Distribution Width 19.1 % (9.3-17.3)
[2020-09-30 07:06] LABS: Calcium 8.8 MG/DL (8.5-10.1); Osmolality,Calculated 289.1 MOS/KG (273-304); Potassium 5.4 MMOL/L (3.5-5.1)
[2020-09-30] MEDS: INSULIN LISPRO 100 UNIT/ML SUBCUT SCH ×4 (07:19→20:49)
[2020-09-30 07:20] LABS: Hypochromasia 1+; Microcytosis 1+
[2020-09-30] MEDS: FERROUS SULFATE 325 MG TABLET PO SCH ×3 (08:48→20:49)
[2020-09-30] MEDS: SODIUM BICARBONATE 650 MG TABLET PO SCH (08:48)
[2020-09-30] MEDS: levETIRAcetam 500 MG TABLET PO SCH ×3 (08:48→20:49)
[2020-09-30] MEDS: ARIPiprazole 5 MG TABLET PO SCH (08:48)
[2020-09-30] MEDS: TAMSULOSIN 0.4 MG CAPSULE PO SCH ×2 (08:48→20:49)
[2020-09-30] MEDS: ZINC OXIDE PASTE 113 GM TUBE TOP SCH (08:49)
[2020-09-30] MEDS ORDERED: FUROSEMIDE 40 MG/4 ML VIAL IV SCH (09:00)
[2020-09-30] MEDS: FUROSEMIDE 40 MG/4 ML VIAL IV SCH (15:25)
[2020-09-30] MEDS ORDERED: TUBERCULIN SKIN TEST 0.1 ML SYRINGE INTRADERM ONE (17:30)
[2020-09-30] MEDS: ENOXAPARIN 40 MG/0.4 ML SYRINGE SUBCUT SCH (20:49)
[2020-09-30] MEDS: traZODone 50 MG TABLET PO SCH (20:49)
[2020-10-01] MEDS: ZINC OXIDE PASTE 113 GM TUBE TOP SCH ×3 (00:05→20:09)
[2020-10-01] MEDS: ALBUTEROL/IPRATROPIUM 3 ML NEB RESP TX SCH ×4 (00:42→19:42)
[2020-10-01] MEDS: VANCOMYCIN INJ 1,750 MG in SODIUM CHLORIDE 0.9% 500 ML IV SCH (00:58)
[2020-10-01] MEDS: PIPERACILLIN/TAZOBACTAM 3,375 MG in SODIUM CHLORIDE 0.9% 100 ML IV SCH (04:41)
[2020-10-01 05:28] LABS: Basophils % 0.2 % (0.0-0.8); Eosinophils # 0.2 10*3/uL (0.0-0.87); Eosinophils % 4.1 % (0.00-10.9); Hematocrit 28.4 VOL% (42.0-52.0); Hemoglobin 8.5 GM/DL (14.0-18.0); Immature Granulocytes % 0.2 %; Immature Granulocytes Absolute 0.01 #; Lymphocytes # 0.9 10*3/uL (1.4-4.0); Lymphocytes % 16.1 % (21.2-54.2); Mean Corpuscular HGB Conc 29.9 GM/DL (32-36); Mean Corpuscular Volume 97.6 FL (87-102); Mean Platelet Volume 10.8 FL (9.6-12.0); Monocytes % 11.9 % (1.7-12.7); Neutrophils % 67.5 % (38.7-73.9); Platelet Count 141 T/CUMM (130-400); Red Blood Count 2.91 MC/CUMM (3.8-5.5); Red Cell Distribution Width 18.6 % (9.3-17.3); White Blood Count 5.8 T/CUMM (4-12)
[2020-10-01 05:54] LABS: Albumin 1.8 G/DL (3.4-5.0); Bilirubin,Total 0.8 MG/DL (0.2-1.0); Calcium 8.9 MG/DL (8.5-10.1); Osmolality,Calculated 286.1 MOS/KG (273-304); Potassium 5.4 MMOL/L (3.5-5.1)
[2020-10-01] MEDS: LEVOTHYROXINE 88 MCG TABLET PO SCH (06:20)
[2020-10-01] MEDS: INSULIN LISPRO 100 UNIT/ML SUBCUT SCH ×4 (08:25→20:10)
[2020-10-01] MEDS: TAMSULOSIN 0.4 MG CAPSULE PO SCH ×2 (09:21→20:09)
[2020-10-01] MEDS: ARIPiprazole 5 MG TABLET PO SCH (09:21)
[2020-10-01] MEDS: levETIRAcetam 500 MG TABLET PO SCH ×3 (09:21→20:09)
[2020-10-01] MEDS: FERROUS SULFATE 325 MG TABLET PO SCH ×3 (09:21→20:09)
[2020-10-01] MEDS: FUROSEMIDE 40 MG/4 ML VIAL IV SCH ×2 (09:21→15:21)
[2020-10-01] MEDS ORDERED: SODIUM POLYSTYRENE SULFATE 15 GM/60 ML BOTTLE PO STA (10:37)
[2020-10-01] MEDS: AMOXICILLIN/CLAV 500 MG TABLET PO SCH (17:05)
[2020-10-01] MEDS: traZODone 50 MG TABLET PO SCH (20:09)
[2020-10-01] MEDS: ENOXAPARIN 40 MG/0.4 ML SYRINGE SUBCUT SCH (20:09)
[2020-10-02] MEDS: ALBUTEROL/IPRATROPIUM 3 ML NEB RESP TX SCH ×2 (01:22→07:05)
[2020-10-02 05:43] LABS: Basophils % 0.5 % (0.0-0.8); Eosinophils # 0.3 10*3/uL (0.0-0.87); Hematocrit 28.9 VOL% (42.0-52.0); Hemoglobin 9.3 GM/DL (14.0-18.0); Immature Granulocytes % 0.2 %; Immature Granulocytes Absolute 0.01 #; Lymphocytes % 16.6 % (21.2-54.2); Mean Corpuscular HGB Conc 32.2 GM/DL (32-36); Mean Corpuscular Volume 92.3 FL (87-102); Mean Platelet Volume 10.2 FL (9.6-12.0); Monocytes % 9.8 % (1.7-12.7); Neutrophils % 67.9 % (38.7-73.9); Platelet Count 184 T/CUMM (130-400); Red Blood Count 3.13 MC/CUMM (3.8-5.5); Red Cell Distribution Width 18.1 % (9.3-17.3)
[2020-10-02 06:02] LABS: Osmolality,Calculated 285.3 MOS/KG (273-304); Potassium 5.1 MMOL/L (3.5-5.1)
[2020-10-02] MEDS: LEVOTHYROXINE 88 MCG TABLET PO SCH (06:05)
[2020-10-02] MEDS: INSULIN LISPRO 100 UNIT/ML SUBCUT SCH ×3 (08:45→15:47)
[2020-10-02] MEDS: ZINC OXIDE PASTE 113 GM TUBE TOP SCH (09:52)
[2020-10-02] MEDS: ARIPiprazole 5 MG TABLET PO SCH (09:52)
[2020-10-02] MEDS: levETIRAcetam 500 MG TABLET PO SCH ×2 (09:52→15:39)
[2020-10-02] MEDS: TAMSULOSIN 0.4 MG CAPSULE PO SCH (09:52)
[2020-10-02] MEDS: AMOXICILLIN/CLAV 500 MG TABLET PO SCH (09:52)
[2020-10-02] MEDS: FERROUS SULFATE 325 MG TABLET PO SCH ×2 (10:24→15:39)
[2020-10-02] MEDS: FUROSEMIDE 40 MG/4 ML VIAL IV SCH (11:58)
[2020-10-02 16:43] VITALS: BP 169/84
== END 2020-10-02 17:03 | DRG 193 ==
LOC: EDUNIT# → EDBD → N.ED 16:26 → N.EDINP 19:05 → SUATTDRO 19:05 → N.EDINP 20:49 → N.3E 21:01
PROVIDERS: ADMIT Internal Medicine; ATTEND Internal Medicine

== ENCOUNTER 2021-10-09 12:34 | Observation (INO) ==
[2021-10-09 15:39] LABS: Basophils % 0.3 % (0.0-0.8); Eosinophils # 0.3 10*3/uL (0.0-0.87); Eosinophils % 2.3 % (0.00-10.9); Hematocrit 23.5 VOL% (42.0-52.0); Hemoglobin 7.2 GM/DL (14.0-18.0); Immature Granulocytes % 1.1 %; Immature Granulocytes Absolute 0.13 #; Lymphocytes # 1.9 10*3/uL (1.4-4.0); Lymphocytes % 16.1 % (21.2-54.2); Mean Corpuscular HGB Conc 30.6 GM/DL (32-36); Mean Corpuscular Volume 100.4 FL (87-102); Monocytes # 1.3 10*3/uL (0.11-0.8); Monocytes % 10.9 % (1.7-12.7); Neutrophils % 69.3 % (38.7-73.9); Platelet Count 313 T/CUMM (130-400); Red Blood Count 2.34 MC/CUMM (3.8-5.5); Red Cell Distribution Width 17.1 % (9.3-17.3); White Blood Count 12.1 T/CUMM (4-12)
[2021-10-09 16:00] LABS: Alanine Aminotransferase 18 U/L (16-61); Albumin 1.8 G/DL (3.4-5.0); Alkaline Phosphatase 159 U/L (45-117); Amylase 38 U/L (25-115); Aspartate Amino Transferase 18 U/L (0-37); Bilirubin,Total < 0.39 MG/DL (0.20-1.00); Blood Urea Nitrogen 25 MG/DL (7-18); Carbon Dioxide 33 MMOL/L (21-32); Chloride 101 MMOL/L (98-107); Glucose 104 MG/DL (74-106); Osmolality,Calculated 280.5 MOS/KG (273-304); Potassium 3.3 MMOL/L (3.5-5.1); Sodium 139 MMOL/L (136-145); Total Protein 6.2 G/DL (6.4-8.2)
[2021-10-09] MEDS ORDERED: LEVOFLOXACIN INJ 500 MG/100 ML PREMIX IV STA (16:27)
[2021-10-09] MEDS ORDERED: ACETAMINOPHEN 325 MG TABLET PO PRN (17:00)
[2021-10-09] MEDS ORDERED: GLUCAGON 1 MG VIAL IM PRN (17:00)
[2021-10-09] MEDS ORDERED: hydrALAZINE 20 MG/1 ML VIAL IV PRN (17:00)
[2021-10-09] MEDS ORDERED: traZODone 50 MG TABLET PO PRN (17:09)
[2021-10-09] MEDS ORDERED: DEXTROSE 10% 250 ML BAG IV PRN (17:09)
[2021-10-09] MEDS ORDERED: LACTULOSE 20 GM/30 ML UDCUP PO ONE (17:30)
[2021-10-09] MEDS: cefTRIAXone 1,000 MG in SODIUM CHLORIDE 0.9% 100 ML IV SCH (17:31)
[2021-10-09] MEDS: HEPARIN 5,000 UNIT/1 ML VIAL SUBCUT SCH (18:55)
[2021-10-09] MEDS: metroNIDAZOLE INJ 500 MG/100 ML PREMIX IV SCH (21:54)
[2021-10-09] MEDS: levETIRAcetam 500 MG TABLET PO SCH (21:54)
[2021-10-09] MEDS: DOCUSATE SODIUM 100 MG CAPSULE PO SCH (21:55)
[2021-10-09] MEDS: PANTOPRAZOLE 40 MG TABLET PO SCH (21:55)
[2021-10-10] MEDS ORDERED: PROMETHAZINE INJ 12.5 MG in SODIUM CHLORIDE 0.9% 50 ML IV PRN (01:36)
[2021-10-10] MEDS: ONDANSETRON 4 MG/2 ML VIAL IV PRN ×2 (01:42→09:21)
[2021-10-10] MEDS: metroNIDAZOLE INJ 500 MG/100 ML PREMIX IV SCH ×3 (05:19→21:32)
[2021-10-10] MEDS: HEPARIN 5,000 UNIT/1 ML VIAL SUBCUT SCH ×2 (05:20→18:11)
[2021-10-10 06:10] LABS: Basophils % 0.4 % (0.0-0.8); Eosinophils # 0.2 10*3/uL (0.0-0.87); Eosinophils % 1.6 % (0.00-10.9); Hematocrit 25.1 VOL% (42.0-52.0); Hemoglobin 7.7 GM/DL (14.0-18.0); Immature Granulocytes % 1.2 %; Immature Granulocytes Absolute 0.12 #; Lymphocytes # 1.3 10*3/uL (1.4-4.0); Lymphocytes % 12.8 % (21.2-54.2); Mean Corpuscular HGB Conc 30.7 GM/DL (32-36); Mean Corpuscular Volume 99.6 FL (87-102); Mean Platelet Volume 9.5 FL (9.6-12.0); Monocytes # 0.9 10*3/uL (0.11-0.8); Monocytes % 9.3 % (1.7-12.7); Neutrophils % 74.7 % (38.7-73.9); Platelet Count 327 T/CUMM (130-400); Red Blood Count 2.52 MC/CUMM (3.8-5.5); Red Cell Distribution Width 16.8 % (9.3-17.3); White Blood Count 9.8 T/CUMM (4-12)
[2021-10-10 06:38] LABS: Osmolality,Calculated 279.8 MOS/KG (273-304); Potassium 3.2 MMOL/L (3.5-5.1); Thyroid Stimulating Hormone 1.67 uIU/ml (0.358-3.74)
[2021-10-10] MEDS ORDERED: POTASSIUM CHLORIDE 20 MEQ TABLET PO ONE ×2 (08:00→11:00)
[2021-10-10] MEDS: DOCUSATE SODIUM 100 MG CAPSULE PO SCH ×2 (09:47→21:31)
[2021-10-10] MEDS: amLODIPine 5 MG TABLET PO SCH (09:48)
[2021-10-10] MEDS: POLYETHYLENE GLYCOL POWDER 17 GM PACK PO SCH (09:48)
[2021-10-10] MEDS: levETIRAcetam 500 MG TABLET PO SCH ×3 (09:48→21:31)
[2021-10-10] MEDS: PANTOPRAZOLE 40 MG TABLET PO SCH (09:49)
[2021-10-10] MEDS ORDERED: HEPARIN 10,000 UNIT/10 ML VIAL IV SCH (16:30)
[2021-10-10] MEDS: cefTRIAXone 1,000 MG in SODIUM CHLORIDE 0.9% 100 ML IV SCH (18:09)
[2021-10-10] MEDS: PANTOPRAZOLE 40 MG VIAL IV SCH (21:32)
[2021-10-11] MEDS: HEPARIN 5,000 UNIT/1 ML VIAL SUBCUT SCH (05:17)
[2021-10-11] MEDS: metroNIDAZOLE INJ 500 MG/100 ML PREMIX IV SCH (05:17)
[2021-10-11] MEDS ORDERED: DEXTROSE 10% 250 ML BAG IV PRN (09:12)
[2021-10-11] MEDS: PANTOPRAZOLE 40 MG VIAL IV SCH (09:17)
[2021-10-11] MEDS: POLYETHYLENE GLYCOL POWDER 17 GM PACK PO SCH (09:18)
[2021-10-11] MEDS: amLODIPine 5 MG TABLET PO SCH (09:18)
[2021-10-11] MEDS: levETIRAcetam 500 MG TABLET PO SCH (09:18)
[2021-10-11] MEDS: DOCUSATE SODIUM 100 MG CAPSULE PO SCH (09:18)
[2021-10-11 10:41] LABS: Basophils # 0.1 10*3/uL (0.0-0.2); Basophils % 0.6 % (0.0-0.8); Eosinophils # 0.2 10*3/uL (0.0-0.87); Eosinophils % 2.1 % (0.00-10.9); Hematocrit 25.1 VOL% (42.0-52.0); Hemoglobin 7.6 GM/DL (14.0-18.0); Immature Granulocytes % 1.2 %; Lymphocytes # 1.6 10*3/uL (1.4-4.0); Lymphocytes % 17.9 % (21.2-54.2); Mean Corpuscular HGB Conc 30.3 GM/DL (32-36); Mean Corpuscular Volume 99.6 FL (87-102); Mean Platelet Volume 8.7 FL (9.6-12.0); Monocytes # 0.7 10*3/uL (0.11-0.8); Monocytes % 8.2 % (1.7-12.7); Platelet Count 275 T/CUMM (130-400); Red Blood Count 2.52 MC/CUMM (3.8-5.5); Red Cell Distribution Width 16.6 % (9.3-17.3); White Blood Count 8.7 T/CUMM (4-12)
[2021-10-11 11:07] LABS: Alanine Aminotransferase 18 U/L (16-61); Albumin 1.8 G/DL (3.4-5.0); Alkaline Phosphatase 160 U/L (45-117); Aspartate Amino Transferase 19 U/L (0-37); Bilirubin,Total < 0.39 MG/DL (0.20-1.00); Blood Urea Nitrogen 19 MG/DL (7-18); Calcium 8.6 MG/DL (8.5-10.1); Carbon Dioxide 29 MMOL/L (21-32); Chloride 106 MMOL/L (98-107); Glucose 92 MG/DL (74-106); Osmolality,Calculated 278.5 MOS/KG (273-304); Potassium 3.8 MMOL/L (3.5-5.1); Sodium 139 MMOL/L (136-145); Total Protein 6.6 G/DL (6.4-8.2)
[2021-10-11 12:14] VITALS: BP 143/71
== END 2021-10-11 15:35 | disposition home or self-care (01) ==
LOC: EDBD → EDUNIT# → N.ED 12:34 → N.EDINP 12:34 → N.3E 20:04
PROVIDERS: ADMIT Family Medicine; ATTEND Family Medicine

== ENCOUNTER 2021-12-29 17:46 | Inpatient (IN) ==
[2021-12-30 00:43] LABS: Basophils % 0.2 % (0.0-0.8); Eosinophils # 0.2 10*3/uL (0.0-0.87); Eosinophils % 1.5 % (0.00-10.9); Immature Granulocytes % 0.3 %; Immature Granulocytes Absolute 0.04 #; Lymphocytes # 1.6 10*3/uL (1.4-4.0); Lymphocytes % 12.6 % (21.2-54.2); Mean Corpuscular Volume 90.4 FL (87-102); Monocytes # 1.4 10*3/uL (0.11-0.8); Monocytes % 11.2 % (1.7-12.7); Neutrophils % 74.2 % (38.7-73.9); Platelet Count 157 T/CUMM (130-400); Red Blood Count 3.32 MC/CUMM (3.8-5.5); Red Cell Distribution Width 16.8 % (9.3-17.3); White Blood Count 12.4 T/CUMM (4-12)
[2021-12-30 00:54] LABS: PT Patient Result 10.9 SECS (10.1-12.1)
[2021-12-30 01:15] LABS: Alanine Aminotransferase 15 U/L (16-61); Albumin 2.7 G/DL (3.4-5.0); Alkaline Phosphatase 175 U/L (45-117); Aspartate Amino Transferase 13 U/L (0-37); Bilirubin,Total < 0.39 MG/DL (0.20-1.00); Blood Urea Nitrogen 53 MG/DL (7-18); Carbon Dioxide 25 MMOL/L (21-32); Chloride 112 MMOL/L (98-107); Glucose 148 MG/DL (74-106); Potassium 4.2 MMOL/L (3.5-5.1); Sodium 143 MMOL/L (136-145); Total Protein 6.9 G/DL (6.4-8.2)
[2021-12-30] MEDS ORDERED: VANCOMYCIN INJ 1,000 MG in SODIUM CHLORIDE 0.9% 250 ML IV STA (01:29)
[2021-12-30] MEDS ORDERED: MORPHINE 2 MG/1 ML SYRINGE IV PRN (02:17)
[2021-12-30] MEDS ORDERED: hydrALAZINE 20 MG/1 ML VIAL IV PRN (02:17)
[2021-12-30] MEDS ORDERED: ONDANSETRON 4 MG/2 ML VIAL IV PRN (02:17)
[2021-12-30] MEDS ORDERED: GLUCAGON 1 MG VIAL IM PRN ×2 (02:17→13:27)
[2021-12-30] MEDS ORDERED: DEXTROSE 10% 250 ML BAG IV PRN (02:17)
[2021-12-30] MEDS ORDERED: ACETAMINOPHEN 325 MG TABLET PO PRN (02:17)
[2021-12-30] MEDS: cefTRIAXone 2,000 MG in SODIUM CHLORIDE 0.9% 100 ML IV SCH (04:07)
[2021-12-30] MEDS: INSULIN LISPRO 100 UNIT/ML SUBCUT SCH ×4 (09:47→21:31)
[2021-12-30] MEDS: PANTOPRAZOLE 40 MG TABLET PO SCH (10:45)
[2021-12-30] MEDS ORDERED: LACTATED RINGERS 1,000 ML IV SCH (11:30)
[2021-12-30] MEDS ORDERED: fentaNYL 100 MCG/2 ML VIAL ONE (11:33)
[2021-12-30] MEDS ORDERED: DEXMEDETOMIDINE 200 MCG/2 ML VIAL ONE (11:39)
[2021-12-30] MEDS ORDERED: propofoL 200 MG/20 ML VIAL IV ONE (12:03)
[2021-12-30] MEDS ORDERED: LIDOCAINE 2% 5 ML VIAL ONE (12:03)
[2021-12-30] MEDS ORDERED: DEXTROSE 50% 25 GM/50 ML VIAL IV PRN (13:27)
[2021-12-30] MEDS ORDERED: ENOXAPARIN 40 MG/0.4 ML SYRINGE SUBCUT SCH (21:00)
[2021-12-30] MEDS ORDERED: VANCOMYCIN INJ 1,000 MG in SODIUM CHLORIDE 0.9% 250 ML IV SCH (21:00)
[2021-12-31] MEDS: cefTRIAXone 2,000 MG in SODIUM CHLORIDE 0.9% 100 ML IV SCH (02:26)
[2021-12-31 05:21] LABS: Calcium 9.2 MG/DL (8.5-10.1); Osmolality,Calculated 299.6 MOS/KG (273-304); Potassium 4.4 MMOL/L (3.5-5.1)
[2021-12-31 05:26] LABS: Basophils % 0.2 % (0.0-0.8); Eosinophils # 0.5 10*3/uL (0.0-0.87); Eosinophils % 4.4 % (0.00-10.9); Hematocrit 28.9 VOL% (42.0-52.0); Hemoglobin 8.6 GM/DL (14.0-18.0); Immature Granulocytes % 0.4 %; Immature Granulocytes Absolute 0.04 #; Lymphocytes # 1.7 10*3/uL (1.4-4.0); Mean Corpuscular HGB Conc 29.8 GM/DL (32-36); Mean Corpuscular Volume 91.5 FL (87-102); Mean Platelet Volume 9.9 FL (9.6-12.0); Monocytes % 8.4 % (1.7-12.7); Neutrophils % 71.6 % (38.7-73.9); Platelet Count 175 T/CUMM (130-400); Red Blood Count 3.16 MC/CUMM (3.8-5.5); Red Cell Distribution Width 16.8 % (9.3-17.3); White Blood Count 11.3 T/CUMM (4-12)
[2021-12-31] MEDS: INSULIN LISPRO 100 UNIT/ML SUBCUT SCH ×2 (08:30→16:12)
[2021-12-31] MEDS: PANTOPRAZOLE 40 MG TABLET PO SCH (09:09)
[2021-12-31] MEDS ORDERED: TUBERCULIN SKIN TEST 0.1 ML SYRINGE INTRADERM ONE (13:13)
[2021-12-31] MEDS ORDERED: PHENYTOIN 100 MG/4 ML UDCUP PO SCH (15:00)
[2021-12-31] MEDS: PHENYTOIN ER 100 MG CAPSULE PO SCH ×2 (15:27→21:42)
[2021-12-31] MEDS: levETIRAcetam 500 MG TABLET PO SCH ×2 (15:29→21:52)
[2021-12-31] MEDS: INSULIN REGULAR 100 UNIT/ML SUBCUT SCH ×2 (16:00→22:07)
[2021-12-31] MEDS ORDERED: busPIRone 10 MG TABLET PO ONE (16:12)
[2021-12-31] MEDS: busPIRone 10 MG TABLET PO SCH (21:42)
[2021-12-31] MEDS: METOPROLOL TARTRATE 25 MG TABLET PEG SCH (21:43)
[2021-12-31] MEDS: ATORVASTATIN 10 MG TABLET PEG SCH (21:43)
[2021-12-31] MEDS: LACOSAMIDE 50 MG TABLET PEG SCH (21:43)
[2021-12-31] MEDS: CITALOPRAM 20 MG TABLET PO SCH (21:43)
[2022-01-01] MEDS: INSULIN REGULAR 100 UNIT/ML SUBCUT SCH ×4 (09:39→21:29)
[2022-01-01] MEDS: amLODIPine 5 MG TABLET PO SCH (09:40)
[2022-01-01] MEDS: METOPROLOL TARTRATE 25 MG TABLET PEG SCH ×2 (09:40→21:28)
[2022-01-01] MEDS: levETIRAcetam 500 MG TABLET PO SCH ×3 (09:40→21:28)
[2022-01-01] MEDS: PANTOPRAZOLE 40 MG TABLET PO SCH (09:41)
[2022-01-01] MEDS: LACOSAMIDE 50 MG TABLET PEG SCH ×2 (09:41→21:28)
[2022-01-01] MEDS: busPIRone 10 MG TABLET PO SCH ×2 (09:41→21:28)
[2022-01-01] MEDS: PHENYTOIN ER 100 MG CAPSULE PO SCH ×3 (09:41→21:28)
[2022-01-01] MEDS ORDERED: HALOPERIDOL 5 MG/ML AMP IM ONE (15:27)
[2022-01-01] MEDS ORDERED: HALOPERIDOL 5 MG/ML AMP IM PRN (18:47)
[2022-01-01] MEDS: ATORVASTATIN 10 MG TABLET PEG SCH (21:28)
[2022-01-01] MEDS: CITALOPRAM 20 MG TABLET PO SCH (21:28)
[2022-01-02] MEDS ORDERED: GLUCOSE GEL 15 GM TUBE PO PRN (07:01)
[2022-01-02] MEDS: INSULIN REGULAR 100 UNIT/ML SUBCUT SCH (07:30)
[2022-01-02 07:32] VITALS: BP 129/69
[2022-01-02] MEDS: PANTOPRAZOLE 40 MG TABLET PO SCH (07:51)
[2022-01-02] MEDS: busPIRone 10 MG TABLET PO SCH (07:52)
[2022-01-02] MEDS: METOPROLOL TARTRATE 25 MG TABLET PEG SCH (07:52)
[2022-01-02] MEDS: levETIRAcetam 500 MG TABLET PO SCH (07:52)
[2022-01-02] MEDS: PHENYTOIN ER 100 MG CAPSULE PO SCH (07:52)
[2022-01-02] MEDS: LACOSAMIDE 50 MG TABLET PEG SCH (07:53)
[2022-01-02] MEDS: amLODIPine 5 MG TABLET PO SCH (07:53)
== END 2022-01-02 08:10 | DRG 264 ==
LOC: N.ED 17:46 → N.EDINP 12-30 02:17 → N.3E 12-30 11:05
PROVIDERS: ADMIT Internal Medicine; ATTEND Internal Medicine

== ENCOUNTER 2022-01-31 14:39 | Inpatient (IN) ==
[2022-01-31] MEDS ORDERED: SODIUM CHLORIDE 0.9% 1,000 ML IV STA (15:15)
[2022-01-31 15:23] LABS: Basophils % 0.1 % (0.0-0.8); Eosinophils # 0.3 10*3/uL (0.0-0.87); Eosinophils % 3.9 % (0.00-10.9); Hematocrit 24.5 VOL% (42.0-52.0); Hemoglobin 7.5 GM/DL (14.0-18.0); Immature Granulocytes % 0.3 %; Immature Granulocytes Absolute 0.02 #; Lymphocytes # 1.5 10*3/uL (1.4-4.0); Lymphocytes % 21.2 % (21.2-54.2); Mean Corpuscular HGB Conc 30.6 GM/DL (32-36); Mean Corpuscular Volume 89.4 FL (87-102); Mean Platelet Volume 10.4 FL (9.6-12.0); Monocytes # 0.8 10*3/uL (0.11-0.8); Monocytes % 10.4 % (1.7-12.7); Neutrophils % 64.1 % (38.7-73.9); Platelet Count 176 T/CUMM (130-400); Red Blood Count 2.74 MC/CUMM (3.8-5.5); Red Cell Distribution Width 17.6 % (9.3-17.3); White Blood Count 7.2 T/CUMM (4-12)
[2022-01-31 15:37] LABS: Alanine Aminotransferase 16 U/L (16-61); Albumin 2.6 G/DL (3.4-5.0); Alkaline Phosphatase 243 U/L (45-117); Aspartate Amino Transferase 18 U/L (0-37); Bilirubin,Total < 0.39 MG/DL (0.20-1.00); Blood Urea Nitrogen 40 MG/DL (7-18); Calcium 8.6 MG/DL (8.5-10.1); Carbon Dioxide 22 MMOL/L (21-32); Chloride 114 MMOL/L (98-107); Glucose 70 MG/DL (74-106); Osmolality,Calculated 286.4 MOS/KG (273-304); Potassium 5.4 MMOL/L (3.5-5.1); Sodium 140 MMOL/L (136-145); Total Protein 6.9 G/DL (6.4-8.2)
[2022-01-31 15:43] LABS: Hyaline Casts,Urine 4 /LPF (0-3); Mucus,Urine Moderate /LPF (Occasional); RBC,Urine 7 /HPF (0-4)
[2022-01-31 15:45] LABS: Bilirubin,Urine Negative (Negative); Blood, Urine Negative (Negative); Glucose,Urine (UA) Negative (Negative); Ketones,Urine Negative (Negative); Nitrite,Urine Negative (Negative); Protein,Urine 30 mg/dL (Negative); Urine Appearance Slightly Hazy (Clear); Urine Color Yellow (Yellow); Urine Specific Gravity 1.015 (1.001-1.035); Urine Urobilinogen 0.2 eU/dL (<2.0); Urine pH 6.5 (4.5-8.0)
[2022-01-31] MEDS ORDERED: cefTRIAXone 1,000 MG in SODIUM CHLORIDE 0.9% 100 ML IV STA (16:41)
[2022-01-31] MEDS ORDERED: GLUCAGON 1 MG VIAL IM PRN (17:23)
[2022-01-31] MEDS ORDERED: DOCUSATE SODIUM 100 MG CAPSULE PO PRN (17:28)
[2022-01-31] MEDS ORDERED: ACETAMINOPHEN 325 MG TABLET PO PRN (17:28)
[2022-01-31] MEDS ORDERED: SODIUM CHLORIDE 0.9% 1,000 ML IV PRN (18:44)
[2022-01-31] MEDS: DEXTROSE 10% 250 ML BAG IV PRN (19:55)
[2022-01-31] MEDS: ENOXAPARIN 40 MG/0.4 ML SYRINGE SUBCUT SCH (20:30)
[2022-01-31] MEDS: INSULIN REGULAR 100 UNIT/ML SUBCUT SCH (20:32)
[2022-01-31] MEDS: MEROPENEM 500 MG in SODIUM CHLORIDE 0.9% 100 ML IV SCH (20:33)
[2022-01-31] MEDS: LACOSAMIDE INJ 150 MG in SODIUM CHLORIDE 0.9% 50 ML IV SCH (20:33)
[2022-02-01] MEDS: DEXTROSE 10% 250 ML BAG IV PRN ×4 (00:20→20:20)
[2022-02-01 00:53] LABS: Arterial Base Excess iSTAT -7 MMOL/L (-2.5-2.5); Arterial O2 Saturation iSTAT 99 % (95-100); Arterial PCO2 iSTAT 38 MM HG (35-48); Arterial PO2 iSTAT 134 MM HG (80-95); Arterial Total CO2 iSTAT 20 MMO/L (23-27); Arterial pH iSTAT 7.306 (7.35-7.45)
[2022-02-01] MEDS: MEROPENEM 500 MG in SODIUM CHLORIDE 0.9% 100 ML IV SCH ×4 (03:01→21:05)
[2022-02-01 05:33] LABS: Basophils % 0.2 % (0.0-0.8); Eosinophils # 0.1 10*3/uL (0.0-0.87); Eosinophils % 1.7 % (0.00-10.9); Hematocrit 27.1 VOL% (42.0-52.0); Hemoglobin 8.3 GM/DL (14.0-18.0); Immature Granulocytes % 0.6 %; Immature Granulocytes Absolute 0.03 #; Lymphocytes # 0.9 10*3/uL (1.4-4.0); Lymphocytes % 16.4 % (21.2-54.2); Mean Corpuscular HGB Conc 30.6 GM/DL (32-36); Mean Corpuscular Volume 89.4 FL (87-102); Mean Platelet Volume 10.1 FL (9.6-12.0); Monocytes # 0.6 10*3/uL (0.11-0.8); Neutrophils % 70.1 % (38.7-73.9); Platelet Count 154 T/CUMM (130-400); Red Blood Count 3.03 MC/CUMM (3.8-5.5); Red Cell Distribution Width 16.9 % (9.3-17.3); White Blood Count 5.4 T/CUMM (4-12)
[2022-02-01] MEDS: LEVOTHYROXINE 100 MCG VIAL IV SCH (05:35)
[2022-02-01 05:54] LABS: Calcium 8.4 MG/DL (8.5-10.1); Osmolality,Calculated 281.5 MOS/KG (273-304); Potassium 4.7 MMOL/L (3.5-5.1)
[2022-02-01 06:32] LABS: Folate 4.31 NG/ML (5.38-24.0); Vitamin B12 971 PG/ML (211-911)
[2022-02-01 07:12] LABS: Free T4 (Free Thyroxine) 0.55 NG/DL (0.76-1.46); Thyroid Stimulating Hormone 2.95 uIU/ml (0.358-3.74)
[2022-02-01 07:23] LABS: % Iron Saturation 58.6 % (18-50); Ferritin 771.8 ng/mL (26-388)
[2022-02-01 07:26] LABS: Sedimentation Rate-Westergren 74 MM/HR (0-20)
[2022-02-01] MEDS: INSULIN REGULAR 100 UNIT/ML SUBCUT SCH ×4 (08:54→21:36)
[2022-02-01] MEDS: LACOSAMIDE INJ 150 MG in SODIUM CHLORIDE 0.9% 50 ML IV SCH (10:53)
[2022-02-01] MEDS: busPIRone 10 MG TABLET PO SCH ×3 (11:08→21:36)
[2022-02-01] MEDS: BACILLUS COAGULANS CAPLET PO SCH ×2 (11:08→21:36)
[2022-02-01] MEDS: ASPIRIN CHEW 81 MG TABLET PO SCH (11:08)
[2022-02-01] MEDS: amLODIPine 5 MG TABLET PO SCH (11:09)
[2022-02-01] MEDS: LACTULOSE 20 GM/30 ML UDCUP PO SCH (11:09)
[2022-02-01] MEDS: METOPROLOL TARTRATE 25 MG TABLET PO SCH ×2 (11:09→21:36)
[2022-02-01] MEDS: FOLIC ACID 1 MG TABLET PO SCH ×2 (11:09→21:36)
[2022-02-01] MEDS: SEVELAMER CARBONATE 800 MG TABLET PO SCH ×2 (12:14→17:08)
[2022-02-01] MEDS: ENOXAPARIN 40 MG/0.4 ML SYRINGE SUBCUT SCH (21:05)
[2022-02-01] MEDS: ATORVASTATIN 10 MG TABLET PO SCH (21:36)
[2022-02-01] MEDS: LACOSAMIDE 50 MG TABLET PO SCH (21:37)
[2022-02-01] MEDS: CITALOPRAM 20 MG TABLET PO SCH (21:42)
[2022-02-02] MEDS: DEXTROSE 10% 250 ML BAG IV PRN (00:05)
[2022-02-02] MEDS: MEROPENEM 500 MG in SODIUM CHLORIDE 0.9% 100 ML IV SCH ×4 (03:18→20:46)
[2022-02-02] MEDS: DEXTROSE 10% 1,000 ML IV SCH (04:10)
[2022-02-02] MEDS: LEVOTHYROXINE 100 MCG VIAL IV SCH (05:40)
[2022-02-02 06:09] LABS: Free T4 (Free Thyroxine) 0.59 NG/DL (0.76-1.46); Thyroid Stimulating Hormone 2.94 uIU/ml (0.358-3.74)
[2022-02-02 08:06] LABS: Basophils % 0.1 % (0.0-0.8); Eosinophils # 0.3 10*3/uL (0.0-0.87); Eosinophils % 3.1 % (0.00-10.9); Hematocrit 26.9 VOL% (42.0-52.0); Hemoglobin 8.4 GM/DL (14.0-18.0); Immature Granulocytes % 0.2 %; Immature Granulocytes Absolute 0.02 #; Lymphocytes # 1.5 10*3/uL (1.4-4.0); Lymphocytes % 17.2 % (21.2-54.2); Mean Corpuscular HGB Conc 31.2 GM/DL (32-36); Mean Corpuscular Volume 88.5 FL (87-102); Mean Platelet Volume 9.9 FL (9.6-12.0); Monocytes # 0.9 10*3/uL (0.11-0.8); Monocytes % 11.1 % (1.7-12.7); Neutrophils % 68.3 % (38.7-73.9); Platelet Count 164 T/CUMM (130-400); Red Blood Count 3.04 MC/CUMM (3.8-5.5); Red Cell Distribution Width 17.5 % (9.3-17.3); White Blood Count 8.5 T/CUMM (4-12)
[2022-02-02 08:16] LABS: Calcium 8.2 MG/DL (8.5-10.1); Osmolality,Calculated 284.3 MOS/KG (273-304); Potassium 4.9 MMOL/L (3.5-5.1)
[2022-02-02] MEDS: INSULIN REGULAR 100 UNIT/ML SUBCUT SCH ×4 (09:21→20:46)
[2022-02-02] MEDS: ASPIRIN CHEW 81 MG TABLET PO SCH (10:15)
[2022-02-02] MEDS: BACILLUS COAGULANS CAPLET PO SCH ×2 (10:15→20:46)
[2022-02-02] MEDS: SEVELAMER CARBONATE 800 MG TABLET PO SCH ×3 (10:15→16:56)
[2022-02-02] MEDS: LACTULOSE 20 GM/30 ML UDCUP PO SCH (10:16)
[2022-02-02] MEDS: METOPROLOL TARTRATE 25 MG TABLET PO SCH ×2 (10:16→20:46)
[2022-02-02] MEDS: busPIRone 10 MG TABLET PO SCH ×3 (10:16→20:46)
[2022-02-02] MEDS: FOLIC ACID 1 MG TABLET PO SCH ×2 (10:16→20:45)
[2022-02-02] MEDS: LACOSAMIDE 50 MG TABLET PO SCH ×2 (10:16→20:45)
[2022-02-02] MEDS: amLODIPine 5 MG TABLET PO SCH (10:17)
[2022-02-02] MEDS: ENOXAPARIN 40 MG/0.4 ML SYRINGE SUBCUT SCH (20:45)
[2022-02-02] MEDS: CITALOPRAM 20 MG TABLET PO SCH (20:45)
[2022-02-02] MEDS: ATORVASTATIN 10 MG TABLET PO SCH (20:46)
[2022-02-03] MEDS: DEXTROSE 10% 1,000 ML IV SCH ×2 (01:11→22:12)
[2022-02-03] MEDS: MEROPENEM 500 MG in SODIUM CHLORIDE 0.9% 100 ML IV SCH ×4 (02:27→20:11)
[2022-02-03 05:21] LABS: Basophils % 0.3 % (0.0-0.8); Eosinophils # 0.4 10*3/uL (0.0-0.87); Eosinophils % 5.3 % (0.00-10.9); Hematocrit 26.9 VOL% (42.0-52.0); Hemoglobin 8.2 GM/DL (14.0-18.0); Immature Granulocytes % 0.4 %; Immature Granulocytes Absolute 0.03 #; Lymphocytes # 1.8 10*3/uL (1.4-4.0); Lymphocytes % 25.8 % (21.2-54.2); Mean Corpuscular HGB Conc 30.5 GM/DL (32-36); Mean Platelet Volume 10.4 FL (9.6-12.0); Monocytes # 0.9 10*3/uL (0.11-0.8); Monocytes % 12.5 % (1.7-12.7); Neutrophils % 55.7 % (38.7-73.9); Platelet Count 143 T/CUMM (130-400); Red Blood Count 2.99 MC/CUMM (3.8-5.5); Red Cell Distribution Width 17.3 % (9.3-17.3); White Blood Count 7.1 T/CUMM (4-12)
[2022-02-03 05:44] LABS: Calcium 8.1 MG/DL (8.5-10.1); Osmolality,Calculated 275.8 MOS/KG (273-304); Potassium 5.6 MMOL/L (3.5-5.1)
[2022-02-03] MEDS: LEVOTHYROXINE 100 MCG VIAL IV SCH (05:44)
[2022-02-03] MEDS: INSULIN REGULAR 100 UNIT/ML SUBCUT SCH ×4 (07:55→21:08)
[2022-02-03] MEDS ORDERED: SODIUM POLYSTYRENE SULFATE 15 GM/60 ML BOTTLE PEG SCH (08:30)
[2022-02-03] MEDS: SEVELAMER CARBONATE 800 MG TABLET PO SCH ×3 (09:35→17:37)
[2022-02-03] MEDS: FOLIC ACID 1 MG TABLET PO SCH ×2 (09:35→20:12)
[2022-02-03] MEDS: LACOSAMIDE 50 MG TABLET PO SCH ×2 (09:35→20:11)
[2022-02-03] MEDS: busPIRone 10 MG TABLET PO SCH ×3 (09:35→20:11)
[2022-02-03] MEDS: LACTULOSE 20 GM/30 ML UDCUP PO SCH (09:35)
[2022-02-03] MEDS: BACILLUS COAGULANS CAPLET PO SCH ×2 (09:35→20:11)
[2022-02-03] MEDS: METOPROLOL TARTRATE 25 MG TABLET PO SCH ×2 (09:36→20:12)
[2022-02-03] MEDS: amLODIPine 5 MG TABLET PO SCH (09:36)
[2022-02-03] MEDS: ASPIRIN CHEW 81 MG TABLET PO SCH (09:36)
[2022-02-03 10:14] LABS: Hemoglobin A1 (Alkaline) 97.3 % (96.5-98.5); Hemoglobin A2 (Alkaline) 2.7 % (1.5-3.5)
[2022-02-03] MEDS: ONDANSETRON 4 MG/2 ML VIAL IV PRN (13:12)
[2022-02-03] MEDS: ENOXAPARIN 40 MG/0.4 ML SYRINGE SUBCUT SCH (20:10)
[2022-02-03] MEDS: levETIRAcetam 250 MG TABLET PO SCH (20:11)
[2022-02-03] MEDS: ATORVASTATIN 10 MG TABLET PO SCH (20:11)
[2022-02-03] MEDS: CITALOPRAM 20 MG TABLET PO SCH (20:12)
[2022-02-03] MEDS: methylPREDNISolone SOD SUC 40 MG/1 ML VIAL IV SCH (22:12)
[2022-02-04] MEDS: MEROPENEM 500 MG in SODIUM CHLORIDE 0.9% 100 ML IV SCH ×4 (03:09→20:19)
[2022-02-04 06:07] LABS: Basophils % 0.2 % (0.0-0.8); Eosinophils % 0.4 % (0.00-10.9); Hematocrit 30.7 VOL% (42.0-52.0); Hemoglobin 9.6 GM/DL (14.0-18.0); Immature Granulocytes % 0.2 %; Immature Granulocytes Absolute 0.01 #; Lymphocytes # 0.7 10*3/uL (1.4-4.0); Lymphocytes % 14.7 % (21.2-54.2); Mean Corpuscular HGB Conc 31.3 GM/DL (32-36); Mean Corpuscular Volume 88.7 FL (87-102); Mean Platelet Volume 9.6 FL (9.6-12.0); Monocytes # 0.1 10*3/uL (0.11-0.8); Monocytes % 2.8 % (1.7-12.7); Neutrophils % 81.7 % (38.7-73.9); Platelet Count 153 T/CUMM (130-400); Red Blood Count 3.46 MC/CUMM (3.8-5.5); Red Cell Distribution Width 17.2 % (9.3-17.3)
[2022-02-04] MEDS: LEVOTHYROXINE 50 MCG TABLET PO SCH (06:15)
[2022-02-04] MEDS: methylPREDNISolone SOD SUC 40 MG/1 ML VIAL IV SCH ×3 (06:15→20:24)
[2022-02-04 06:22] LABS: Calcium 8.1 MG/DL (8.5-10.1); Potassium 5.5 MMOL/L (3.5-5.1)
[2022-02-04] MEDS: LACTULOSE 20 GM/30 ML UDCUP PO SCH (08:32)
[2022-02-04] MEDS: SEVELAMER CARBONATE 800 MG TABLET PO SCH ×3 (08:32→17:28)
[2022-02-04] MEDS: ASPIRIN CHEW 81 MG TABLET PO SCH (08:32)
[2022-02-04] MEDS: BACILLUS COAGULANS CAPLET PO SCH ×2 (08:33→20:19)
[2022-02-04] MEDS: busPIRone 10 MG TABLET PO SCH ×3 (08:33→20:19)
[2022-02-04] MEDS: METOPROLOL TARTRATE 25 MG TABLET PO SCH ×2 (08:33→20:19)
[2022-02-04] MEDS: FOLIC ACID 1 MG TABLET PO SCH ×2 (08:33→20:19)
[2022-02-04] MEDS: amLODIPine 5 MG TABLET PO SCH (08:33)
[2022-02-04] MEDS: levETIRAcetam 250 MG TABLET PO SCH ×2 (08:34→20:18)
[2022-02-04] MEDS: LACOSAMIDE 50 MG TABLET PO SCH ×2 (08:36→20:25)
[2022-02-04] MEDS ORDERED: SODIUM POLYSTYRENE SULFATE 15 GM/60 ML BOTTLE PEG ONE (10:30)
[2022-02-04] MEDS: DEXTROSE 10% 1,000 ML IV SCH ×3 (11:24→23:39)
[2022-02-04] MEDS: ONDANSETRON 4 MG/2 ML VIAL IV PRN ×3 (13:23→23:58)
[2022-02-04] MEDS ORDERED: SIMETHICONE CHEW 125 MG TABLET PO PRN (14:33)
[2022-02-04] MEDS ORDERED: PROMETHAZINE INJ 12.5 MG in SODIUM CHLORIDE 0.9% 50 ML IV ONE (17:00)
[2022-02-04] MEDS: CITALOPRAM 20 MG TABLET PO SCH (20:18)
[2022-02-04] MEDS: ATORVASTATIN 10 MG TABLET PO SCH (20:19)
[2022-02-04] MEDS: ENOXAPARIN 40 MG/0.4 ML SYRINGE SUBCUT SCH (20:25)
[2022-02-05] MEDS: MEROPENEM 500 MG in SODIUM CHLORIDE 0.9% 100 ML IV SCH ×4 (03:47→21:16)
[2022-02-05] MEDS: methylPREDNISolone SOD SUC 40 MG/1 ML VIAL IV SCH ×3 (05:30→21:13)
[2022-02-05] MEDS: LEVOTHYROXINE 50 MCG TABLET PO SCH (05:31)
[2022-02-05 05:55] LABS: Basophils % 0.2 % (0.0-0.8); Hemoglobin 9.3 GM/DL (14.0-18.0); Immature Granulocytes % 0.4 %; Immature Granulocytes Absolute 0.02 #; Lymphocytes # 0.9 10*3/uL (1.4-4.0); Lymphocytes % 17.9 % (21.2-54.2); Mean Corpuscular Volume 87.5 FL (87-102); Mean Platelet Volume 9.4 FL (9.6-12.0); Monocytes # 0.3 10*3/uL (0.11-0.8); Monocytes % 5.6 % (1.7-12.7); Neutrophils % 75.9 % (38.7-73.9); Platelet Count 154 T/CUMM (130-400); Red Blood Count 3.43 MC/CUMM (3.8-5.5); Red Cell Distribution Width 17.1 % (9.3-17.3)
[2022-02-05 06:30] LABS: Calcium 8.5 MG/DL (8.5-10.1); Osmolality,Calculated 275.5 MOS/KG (273-304); Potassium 4.3 MMOL/L (3.5-5.1)
[2022-02-05] MEDS ORDERED: MAGNESIUM SULF RIDER 2 GM/50 ML PREMIX IV ONE (08:06)
[2022-02-05] MEDS: SEVELAMER CARBONATE 800 MG TABLET PO SCH ×3 (10:44→17:23)
[2022-02-05] MEDS: levETIRAcetam 250 MG TABLET PO SCH ×2 (10:45→21:11)
[2022-02-05] MEDS: METOPROLOL TARTRATE 25 MG TABLET PO SCH ×2 (10:45→21:12)
[2022-02-05] MEDS: BACILLUS COAGULANS CAPLET PO SCH ×2 (10:45→21:13)
[2022-02-05] MEDS: amLODIPine 5 MG TABLET PO SCH (10:45)
[2022-02-05] MEDS: busPIRone 10 MG TABLET PO SCH ×3 (10:45→22:00)
[2022-02-05] MEDS: LACTULOSE 20 GM/30 ML UDCUP PO SCH (10:46)
[2022-02-05] MEDS: FOLIC ACID 1 MG TABLET PO SCH ×2 (10:46→21:13)
[2022-02-05] MEDS: LACOSAMIDE 50 MG TABLET PO SCH ×2 (10:46→21:11)
[2022-02-05] MEDS: ASPIRIN CHEW 81 MG TABLET PO SCH (10:46)
[2022-02-05] MEDS ORDERED: amLODIPine 5 MG TABLET PO ONE (11:00)
[2022-02-05] MEDS: DEXTROSE 10% 1,000 ML IV SCH (14:39)
[2022-02-05] MEDS: SODIUM CHLORIDE 0.9% 1,000 ML IV SCH (15:44)
[2022-02-05] MEDS: ATORVASTATIN 10 MG TABLET PO SCH (21:12)
[2022-02-05] MEDS: CITALOPRAM 20 MG TABLET PO SCH (21:12)
[2022-02-05] MEDS: ENOXAPARIN 40 MG/0.4 ML SYRINGE SUBCUT SCH (21:13)
[2022-02-06] MEDS: MEROPENEM 500 MG in SODIUM CHLORIDE 0.9% 100 ML IV SCH ×2 (02:39→10:15)
[2022-02-06] MEDS: SODIUM CHLORIDE 0.9% 1,000 ML IV SCH (05:17)
[2022-02-06 05:28] LABS: Eosinophils % 0.2 % (0.00-10.9); Hematocrit 32.8 VOL% (42.0-52.0); Hemoglobin 10.4 GM/DL (14.0-18.0); Immature Granulocytes % 0.2 %; Immature Granulocytes Absolute 0.01 #; Lymphocytes # 1.1 10*3/uL (1.4-4.0); Lymphocytes % 25.7 % (21.2-54.2); Mean Corpuscular HGB Conc 31.7 GM/DL (32-36); Mean Corpuscular Volume 85.6 FL (87-102); Mean Platelet Volume 10.1 FL (9.6-12.0); Monocytes # 0.1 10*3/uL (0.11-0.8); Monocytes % 2.9 % (1.7-12.7); Platelet Count 196 T/CUMM (130-400); Red Blood Count 3.83 MC/CUMM (3.8-5.5); Red Cell Distribution Width 16.6 % (9.3-17.3); White Blood Count 4.2 T/CUMM (4-12)
[2022-02-06 05:52] LABS: Calcium 8.4 MG/DL (8.5-10.1); Osmolality,Calculated 266.5 MOS/KG (273-304); Potassium 4.3 MMOL/L (3.5-5.1)
[2022-02-06] MEDS: LEVOTHYROXINE 50 MCG TABLET PO SCH (06:09)
[2022-02-06] MEDS ORDERED: amLODIPine 10 MG TABLET PO SCH (09:00)
[2022-02-06] MEDS: BACILLUS COAGULANS CAPLET PO SCH (10:14)
[2022-02-06] MEDS: SEVELAMER CARBONATE 800 MG TABLET PO SCH ×2 (10:14→12:16)
[2022-02-06] MEDS: ASPIRIN CHEW 81 MG TABLET PO SCH (10:14)
[2022-02-06] MEDS: LACTULOSE 20 GM/30 ML UDCUP PO SCH (10:15)
[2022-02-06] MEDS: busPIRone 10 MG TABLET PO SCH (10:15)
[2022-02-06] MEDS: levETIRAcetam 250 MG TABLET PO SCH (10:15)
[2022-02-06] MEDS: METOPROLOL TARTRATE 25 MG TABLET PO SCH (10:15)
[2022-02-06] MEDS: FOLIC ACID 1 MG TABLET PO SCH (10:15)
[2022-02-06] MEDS: LACOSAMIDE 50 MG TABLET PO SCH (10:16)
[2022-02-06 11:29] VITALS: BP 113/78
[2022-02-06] MEDS: methylPREDNISolone SOD SUC 40 MG/1 ML VIAL IV SCH (12:16)
[2022-02-07] MEDS ORDERED: predniSONE 20 MG TABLET PO SCH (09:00)
== END 2022-02-06 12:47 | DRG 689 ==
LOC: EDUNIT# → EDBD → N.ED 14:39 → N.5E 14:39 → SUATTDRO 17:22 → N.5E 18:42
PROVIDERS: ADMIT Internal Medicine; ATTEND Internal Medicine